=== PATIENT | female | born 1960 | race Caucasian/White ===

== ENCOUNTER 2017-08-20 21:07 | Inpatient (IN) | payer MEDICARE, OTHER ==
[~2017-08-20] VITALS: Ht 157.5 cm; Wt 72.6 kg
[~2017-08-20 21:07] MED LIST: ADULT LOW DOSE81 MG PO; ALBUTEROL INH; ANTIVERT25 MG PO; ASPIRIN EC81 M1 PO; B-COMPLEX-VITA1 EACH; BENTYL 20 MG TA20 M1 PO; BIOTIN1 MG PO; CELEXA10 MG PO; CELEXA20 MG; CIPROFLOXACIN500 M3 PO; CRESTOR20 MG PO; CRESTOR40 MG PO; CYMBALTA60 MG PO; DIABETA 2.5MG2.5 MG PO; DIABETA 5MG TABL5 MG PO; DOXEPIN 10 MG C10 M1 PO; ESTRADERM1 EACH; FLAGYL500 MG; GABAPENTIN100 MG PO; HUMALOG MI100 UNIT/2 SQ; HYDROCODONE-AP1 EAC6 PO; HYDROCODONE-APA1 TA1 PO; INVOKANA100 MG PO; KLONOPIN1 MG PO; LEVEMIR SUBQ; LEXAPRO 10 MG T10 MG; LISINOPRIL10 MG PO; LOSARTAN POTASS25 MG PO; METFORMIN HCL500 M2 PO; MIRALAX255 GM; MULTIVITAMINS PO; NEURONTIN 300300 M1 PO; NEXIUM 40 MG CA40 M1 PO; NEXIUM40 MG PO; NITROQUICK0.4 MG; NORCO 10-325 T1 EACH PO; NORCO 5-325 TA1 EACH PO; NORFLEX100 MG PO; NOVOLOG FL100 UNIT/M; PLAVIX 75 MG TA75 MG PO; PREMARIN1.25 MG PO; PROAIR HFA8.5 GM INH; RANEXA500 MG PO; RENEXA PO; TOPAMAX50 MG PO; TOPROL XL25 MG PO; VALTREX 500 MG500 MG PO; VENLAFAXIN37.5 MG/1 PO; XANAX 0.25 MG0.25 MG PO; ZANTAC300 MG PO; ZOFRAN ODT4 MG PO
[2017-08-20 21:13] VITALS: BP 146/94
[2017-08-20 21:47] LABS: HEMATOCRIT 43.6 % (37.0-47.0); HEMOGLOBIN 14.9 gm/dL (12.0-15.0); MCHC 34.1 g/dL (28.0-37.0); MPV 9.2 fl. (7.2-11.1); NUCLEATED RBCS 0 /100WBC; PLATELET COUNT* 339 thou/uL (150-400); RBC 4.79 mil/uL (4.20-5.00); RDW-CV 13.6 % (10.5-14.5); WBC 14.3 thou/uL (4.0-11.0)
[2017-08-20 21:57] LABS: URINE BILIRUBIN NEGATIVE (Negative); URINE BLOOD NEGATIVE (Negative); URINE CLARITY CLEAR; URINE COLOR YELLOW; URINE GLUCOSE-RANDOM 3+ (Negative); URINE KETONES 1+ (Negative); URINE LEUKOCYTES-REFLEX NEGATIVE (Negative); URINE NITRITE-REFLEX NEGATIVE (Negative); URINE PROTEIN NEGATIVE (Negative); URINE SPECIFIC GRAVITY <= 1.005 (1.005-1.030); URINE UROBILINOGEN 0.2 E.U./dl (0.2-1.0)
[2017-08-20 22:06] LABS: ABSOLUTE EOSINOPHILS 0.1 thou/uL (0.0-0.7); ABSOLUTE LYMPHOCYTES 0.7 thou/uL (0.8-5.3); ABSOLUTE MONOCYTES 0.4 thou/uL (0.0-1.2)
[2017-08-20 22:07] LABS: PLATELET ESTIMATE ADEQUATE
[2017-08-20 22:25] LABS: ANION GAP 11 mmol/L (7-16); BUN 10 mg/dL (7-18); CALCIUM 9.9 mg/dL (8.5-10.1); CHLORIDE 86 mmol/L (98-107); CO2 26 mmol/L (21-32); CREATININE 1.1 mg/dL (0.6-1.3); POTASSIUM 3.3 mmol/L (3.5-5.1); SODIUM 123 mmol/L (136-145)
[2017-08-20 22:29] LABS: ALBUMIN 3.3 g/dL (3.4-5.0); ALKALINE PHOSPHATASE 179 U/L (46-116); SGOT 12 U/L (15-37); SGPT 20 U/L (30-65); TOTAL BILIRUBIN 0.7 mg/dL (<0.1-1.0); TOTAL PROTEIN 7.8 g/dL (6.4-8.2); TROPONIN-I LEVEL <0.06 ng/mL (<0.06)
[2017-08-20 22:39] LABS: LIPASE 3051 U/L (73-393)
[2017-08-20 22:43] LABS: GLUCOSE 830 mg/dL (70-99)
[2017-08-20 23:10] LABS: BE -4.1 mmol/L (-2 to +3); HCO3 20.2 mmol/L (22.0-26.0); PCO2 34.8 mmHg (35.0-45.0); PO2 80.5 mmHg (75.0-100.0); pH 7.382 (7.340-7.450)
[2017-08-21] VITALS (10 sets, daily range): BP systolic 99–153; BP diastolic 43–77
[2017-08-21 04:48] LABS: HEMATOCRIT 37.1 % (37.0-47.0); MCH 30.7 pg (26.0-34.0); MCHC 34.5 g/dL (28.0-37.0); MCV 89.2 fL (80.0-100.0); MPV 8.7 fl. (7.2-11.1); RBC 4.16 mil/uL (4.20-5.00); RDW-CV 13.4 % (10.5-14.5); WBC 12.5 thou/uL (4.0-11.0)
[2017-08-21 05:10] LABS: ALBUMIN 2.8 g/dL (3.4-5.0); CALCIUM 8.7 mg/dL (8.5-10.1); CREATININE 0.7 mg/dL (0.6-1.3); POTASSIUM 3.3 mmol/L (3.5-5.1); TOTAL BILIRUBIN 0.4 mg/dL (<0.1-1.0); TOTAL PROTEIN 6.9 g/dL (6.4-8.2)
[2017-08-21 05:51] LABS: HEMOGLOBIN 12.8 gm/dL (12.0-15.0)
[2017-08-22 04:29] LABS: HEMATOCRIT 34.2 % (37.0-47.0); HEMOGLOBIN 11.8 gm/dL (12.0-15.0); MCH 30.9 pg (26.0-34.0); MCHC 34.4 g/dL (28.0-37.0); MCV 89.7 fL (80.0-100.0); MPV 8.4 fl. (7.2-11.1); RBC 3.82 mil/uL (4.20-5.00); RDW-CV 13.6 % (10.5-14.5); WBC 9.2 thou/uL (4.0-11.0)
[2017-08-22 04:43] LABS: ALBUMIN 2.3 g/dL (3.4-5.0); CALCIUM 7.9 mg/dL (8.5-10.1); CREATININE 0.5 mg/dL (0.6-1.3); POTASSIUM 3.6 mmol/L (3.5-5.1); TOTAL BILIRUBIN 0.2 mg/dL (<0.1-1.0); TOTAL PROTEIN 5.8 g/dL (6.4-8.2)
[2017-08-22 08:30] VITALS: BP 119/51
[2017-08-22] MEDS ORDERED: HYDROCODONE-AP1 EAC6 PO (12:55)
[2017-08-22 12:57] VITALS: BP 119/51
--- NOTE | 2017-08-26 16:13 | CON ---
[address] [address] CONSULTATION Name: ANATOLIY MARTINS Room: [address] IN .R.#: [id number] Admission: 08/20/17 Attend Phys: Alistair Norris MD Discharge: 08/22/17 Date of : 60 Report #: [id number] THIS REPORT FOR: //name// CC: Alistair Marmolejo DO DICTATED BY: Nadine Grissom [facility] DATE OF SERVICE: 08/21/2017 Please note at the time of this dictation, the patient was seen and physically examined by myself. REASON FOR CONSULTATION: Abdominal pain, pancreatitis. HISTORY OF PRESENT ILLNESS: This is a pleasant 57-year-old female who states that a couple of days ago, she started having some diffuse abdominal pain, body aches, radiating into her back. She had some nausea and vomiting and diarrhea, which she normally has issues with constipation. She denies any bright red blood or any melena from this. She states when she does get constipated and has not gone for a couple of days, she states she will take some MiraLax, which helps with her bowels. She has no history of pancreatitis or diverticulitis noted in the past. Prior to all of this, the patient did have URI symptoms about a month prior to all of this. She went to urgent care and received an antibiotic, did not improve and then went to her primary care later and received another antibiotic. She does not recall the names of those antibiotics at the present time, but we will talk to her to find out from her pharmacy what they were. The patient was last seen by us in 2012, she had grade A esophagitis with a hiatal hernia. Colonoscopy showed colitis extending from the descending to the sigmoid colon with some internal hemorrhoids and biopsies were confirmed with colonic ischemia. ALLERGIES: No known drug allergies. MEDICATIONS: From home include Plavix, aspirin, multivitamin, Crestor, Zantac, Levemir, Humalog, Biotene, ProAir, Nexium, losartan, Klonopin, Toprol and Cymbalta. PAST MEDICAL HISTORY: Stent placement, coronary artery disease, hyperlipidemia, hypertension, diabetes, GERD, history of lung cancer in 2016 followed with radiation. PAST SURGICAL HISTORY: She had a right upper lobe lobectomy, cataract surgery, carpal tunnel, appendectomy, hysterectomy and quadruple [place] [address] CONSULTATION Name: ANATOLIY MARTINS Sasha Room: [address]#: [id number] Admission: 08/20/17 Attend Phys: Alistair Norris MD Discharge: 08/22/17 Date of : 60 Report #: [id number] FAMILY HISTORY: Noncontributory. SOCIAL HISTORY: She denies any tobacco use, illegal drug use, alcohol rarely. REVIEW OF SYSTEMS: Twelve-point review of systems is essentially negative except what is mentioned in the HPI. PHYSICAL EXAMINATION: VITAL SIGNS: Temperature 36.8, pulse 107, respirations are 12, blood pressure 142/62. HEART: Regular rate and rhythm. LUNGS: Decreased, absent in the right upper with some wheezing noted, clear on the left. ABDOMEN: Soft, positive bowel sounds in all 4 quadrants with diffuse tenderness noted, especially in the upper areas of the abdomen and no bowel movement. LABORATORY DATA: Hemoglobin is 12.8, hematocrit 37.1, white count on admission was 14.3, down to 12.5, platelets is 273 and hematocrit is 37.1. Sodium 134, potassium 3.3, chloride 98, CO2 22, BUN is 7, creatinine 0.7, GFR is 86, glucose is 351, total bilirubin 0.4, alkaline phosphatase 145, ALT is 17, AST is 15. Lipase was 3051. CT of the abdomen and pelvis showed fatty liver. Gallbladder was normal with no stones noted. Pancreas showed minimal stranding at the tail of the pancreas. No focal masses noted and no bile duct dilatation noted. Colon, small amount of gas and stool noted, occasional diverticula in the sigmoid and descending colon. IMPRESSION: 1. Abdominal pain, recent antibiotic use, 2 different ones in the last month. 2. Pancreatitis. 3. Nausea and vomiting is improved. 4. Constipation. 5. Fatty liver. 6. Anticoagulant therapy, Plavix secondary to stent placement. 5. History of lung cancer, recent right upper lobe lobectomy followed up with radiation. PLAN: 1. IV fluids 150, normal saline at 150 an hour. 2. Clear liquids. 3. The patient is going to have her find out what 2 antibiotics she was recently taking. 4. May require an outpatient EUS for further evaluation. [address] [address] CONSULTATION Name: ANATOLIY MARTINS Room: [address] IN M.R.#: [id number] Admission: 08/20/17 Attend Phys: Alistair Norris MD Discharge: 08/22/17 Date of : 60 Report #: [id number] Thank you for allowing us to participate in this patient's care. Please do not hesitate to call with any questions in regard to this consult. <ELECTRONICALLY SIGNED> By: Anjali Avilez MD 08/26/17 1613 0852 [id number] Avilez MD /nt
--- NOTE | 2017-08-26 16:13 | CON ---
[address] [address] CONSULTATION Name: ANATOLIY MARTINS Room: [address] IN .R.#: [id number] Admission: 08/20/17 Attend Phys: Alistair Norris MD Discharge: 08/22/17 Date of : 60 Report #: [id number] THIS REPORT FOR: //name// CC: Alistair Norris Renee Marmolejo DATE OF SERVICE: 08/21/2017 ADDENDUM This is a 57-year-old female with history of upper and lower endoscopy by myself back in 2012. The patient at that time had colonic ischemia. She presents with 1 day of diarrhea, abdominal pain and nausea and vomiting. Upon admission, she was found to have evidence of stranding in the tail of the pancreas suggestive of pancreatitis with elevation of lipase in 3500 range. She also had fatty liver, which was unchanged from previous studies. She is currently on anticoagulation therapy and has had history of lung CA with right upper lobe lobectomy. We do not see any evidence of gallstone pancreatitis and the patient denies drinking any alcohol. She has used antibiotics in June and also takes antilipid agents. We will increase the fluids to 150 mL an hour. Continue monitoring her labs and keep her on clear liquids today. If her lipase improves tomorrow, we will advance her diet to low fat. <ELECTRONICALLY SIGNED> By: Anjali Avilez MD 08/26/17 1613 1126 [id number] Avilez MD /malou
== END 2017-08-22 19:34 | disposition home or self-care (01) | DRG 438 ==
LOC: M.ERS 21:07 → M.ORTHSURG 23:24 → M.ICU 23:24 → M.TBA-ER 23:24 → M.ICU 08-21 01:05 → M.ORTHSURG 08-21 08:12
PROVIDERS: Emergency Medicine; Internal Medicine; ADMIT Internal Medicine
DX: K85.90 Acute pancreatitis without necrosis or infection, unspecified (principal); E11.10 Type 2 diabetes mellitus with ketoacidosis without coma; R65.10 Systemic inflammatory response syndrome (SIRS) of non-infectious origin without acute organ dysfunction; E87.1 Hypo-osmolality and hyponatremia; N18.2 Chronic kidney disease, stage 2 (mild); I25.10 Atherosclerotic heart disease of native coronary artery without angina pectoris; E87.6 Hypokalemia; K75.81 Nonalcoholic steatohepatitis (NASH); E11.22 Type 2 diabetes mellitus with diabetic chronic kidney disease; E78.5 Hyperlipidemia, unspecified; K21.9 Gastro-esophageal reflux disease without esophagitis; E86.0 Dehydration; I12.9 Hypertensive chronic kidney disease with stage 1 through stage 4 chronic kidney disease, or unspecified chronic kidney disease; K59.00 Constipation, unspecified; F32.9 Major depressive disorder, single episode, unspecified; Z79.01 Long term (current) use of anticoagulants; Z85.118 Personal history of other malignant neoplasm of bronchus and lung; Z98.49 Cataract extraction status, unspecified eye; Z95.1 Presence of aortocoronary bypass graft; Z95.5 Presence of coronary angioplasty implant and graft; Z90.710 Acquired absence of both cervix and uterus; Z90.49 Acquired absence of other specified parts of digestive tract; Z87.891 Personal history of nicotine dependence; Z79.4 Long term (current) use of insulin

== ENCOUNTER → 2018-12-07 | Outpatient (CLI) | payer MEDICARE, OTHER ==
[~2018-12-07] MED LIST changes: +AMBIEN 5 MG TABL5 M1 PO; +BENTYL 10 MG CA10 M1 PO; +IMDUR 30 MG TAB30 M1 PO; +KLOR-CON 1010 MEQ PO; +MAGOX 400400 MG PO; +VITAMIN D2000 UNIT PO
== END ==
LOC: M.WC 08:59
DX: E11.621 Type 2 diabetes mellitus with foot ulcer (principal); L97.521 Non-pressure chronic ulcer of other part of left foot limited to breakdown of skin; L97.511 Non-pressure chronic ulcer of other part of right foot limited to breakdown of skin; L84 Corns and callosities; M27.2 Inflammatory conditions of jaws; E78.5 Hyperlipidemia, unspecified; K21.9 Gastro-esophageal reflux disease without esophagitis; I10 Essential (primary) hypertension; I25.10 Atherosclerotic heart disease of native coronary artery without angina pectoris; F41.9 Anxiety disorder, unspecified; Z85.118 Personal history of other malignant neoplasm of bronchus and lung; Z79.4 Long term (current) use of insulin; Z87.891 Personal history of nicotine dependence; Z95.1 Presence of aortocoronary bypass graft; Z95.5 Presence of coronary angioplasty implant and graft; Z90.710 Acquired absence of both cervix and uterus; Z98.41 Cataract extraction status, right eye; Z98.42 Cataract extraction status, left eye; Y63.2 Overdose of radiation given during therapy; Y78.1 Therapeutic (nonsurgical) and rehabilitative radiological devices associated with adverse incidents

== ENCOUNTER → 2018-12-14 | Outpatient (CLI) | payer MEDICARE, OTHER | LOC: M.WC 01:50 | DX: E11.621 Type 2 diabetes mellitus with foot ulcer (principal); L97.521 Non-pressure chronic ulcer of other part of left foot limited to breakdown of skin; L97.511 Non-pressure chronic ulcer of other part of right foot limited to breakdown of skin; M27.2 Inflammatory conditions of jaws; L84 Corns and callosities; I10 Essential (primary) hypertension; E78.5 Hyperlipidemia, unspecified; I25.10 Atherosclerotic heart disease of native coronary artery without angina pectoris; K21.9 Gastro-esophageal reflux disease without esophagitis; F41.9 Anxiety disorder, unspecified; Z87.891 Personal history of nicotine dependence; Z85.118 Personal history of other malignant neoplasm of bronchus and lung; Z90.710 Acquired absence of both cervix and uterus ==

== ENCOUNTER 2018-12-19 11:39 | Emergency (ER) | payer MEDICARE, OTHER ==
[~2018-12-19] VITALS: Ht 152.4 cm; Wt 74.8 kg
[2018-12-19] MEDS ORDERED: NORCO 5-325 TA1 EACH PO (13:40)
[2018-12-19 14:00] VITALS: BP 138/59
== END 2018-12-19 14:00 | disposition home or self-care (01) ==
LOC: M.ERS 11:39
DX: S70.01XA Contusion of right hip, initial encounter (principal); M54.31 Sciatica, right side; E11.9 Type 2 diabetes mellitus without complications; I10 Essential (primary) hypertension; E78.00 Pure hypercholesterolemia, unspecified; F32.9 Major depressive disorder, single episode, unspecified; Z90.49 Acquired absence of other specified parts of digestive tract; Z90.710 Acquired absence of both cervix and uterus; Z95.5 Presence of coronary angioplasty implant and graft; W18.39XA Other fall on same level, initial encounter; Y93.89 Activity, other specified; Y92.89 Other specified places as the place of occurrence of the external cause; Y99.8 Other external cause status

== ENCOUNTER → 2018-12-28 | Outpatient (CLI) | payer MEDICARE, OTHER | LOC: M.WC 05:02 | DX: E11.621 Type 2 diabetes mellitus with foot ulcer (principal); L97.511 Non-pressure chronic ulcer of other part of right foot limited to breakdown of skin; L84 Corns and callosities; M27.2 Inflammatory conditions of jaws; E78.5 Hyperlipidemia, unspecified; K21.9 Gastro-esophageal reflux disease without esophagitis; I10 Essential (primary) hypertension; I25.10 Atherosclerotic heart disease of native coronary artery without angina pectoris; F41.9 Anxiety disorder, unspecified; F32.9 Major depressive disorder, single episode, unspecified; Z85.118 Personal history of other malignant neoplasm of bronchus and lung; Z95.1 Presence of aortocoronary bypass graft; Z95.5 Presence of coronary angioplasty implant and graft; Z90.710 Acquired absence of both cervix and uterus; Z98.41 Cataract extraction status, right eye; Z98.42 Cataract extraction status, left eye; Z87.891 Personal history of nicotine dependence; Y63.2 Overdose of radiation given during therapy; Y78.1 Therapeutic (nonsurgical) and rehabilitative radiological devices associated with adverse incidents ==

== ENCOUNTER 2019-04-09 00:22 | Emergency (ER) | payer MEDICARE, OTHER ==
[~2019-04-09] VITALS: Ht 152.4 cm; Wt 73.9 kg
[~2019-04-09 00:22] MED LIST changes: +CYCLOBENZAPRINE5 MG PO; +ONDANSETRON HCL4 M2 PO; +ONE-A-DAY WOMENS PO; +VITAMIN B-12500 MCG PO
[2019-04-09 01:59] VITALS: BP 110/50
== END 2019-04-09 01:45 | disposition home or self-care (01) ==
LOC: M.ERS 00:22
DX: S93.491A Sprain of other ligament of right ankle, initial encounter (principal); S40.012A Contusion of left shoulder, initial encounter; S40.011A Contusion of right shoulder, initial encounter; E11.9 Type 2 diabetes mellitus without complications; I10 Essential (primary) hypertension; E78.00 Pure hypercholesterolemia, unspecified; F32.9 Major depressive disorder, single episode, unspecified; Y08.89XA Assault by other specified means, initial encounter; Y93.89 Activity, other specified; Y92.89 Other specified places as the place of occurrence of the external cause; Y99.8 Other external cause status

== ENCOUNTER 2019-06-27 10:31 | Inpatient (IN) | payer MEDICARE, OTHER ==
[~2019-06-27] VITALS: Ht 152.4 cm; Wt 70.8 kg
[2019-06-27 10:40] VITALS: BP 122/71
[2019-06-27 11:12] LABS: HEMATOCRIT 33.4 % (37.0-47.0); HEMOGLOBIN 11.2 gm/dL (12.0-15.0); MCH 28.8 pg (26.0-34.0); MCHC 33.5 g/dL (28.0-37.0); MCV 85.8 fL (80.0-100.0); MPV 8.5 fl. (7.2-11.1); NUCLEATED RBCS 0 /100WBC; PLATELET COUNT* 284 thou/uL (150-400); RBC 3.89 mil/uL (4.20-5.00); RDW-CV 15.9 % (10.5-14.5); WBC 21.2 thou/uL (4.0-11.0)
[2019-06-27 11:18] LABS: CALCIUM 9.5 mg/dL (8.5-10.1); CREATININE 1.1 mg/dL (0.6-1.3); POTASSIUM 3.3 mmol/L (3.5-5.1)
[2019-06-27 11:22] LABS: APTT 36.4 Seconds (25.0-31.3); INR 1.1; PROTIME 11.4 Seconds (9.20-11.50)
[2019-06-27 11:23] LABS: ALBUMIN 2.5 g/dL (3.4-5.0); TOTAL BILIRUBIN 0.6 mg/dL (<0.1-1.0); TOTAL PROTEIN 8.2 g/dL (6.4-8.2)
[2019-06-27 11:49] LABS: URINE BILIRUBIN NEGATIVE (Negative); URINE BLOOD TRACE (Negative); URINE CLARITY CLEAR; URINE COLOR YELLOW; URINE GLUCOSE-RANDOM 3+ (Negative); URINE KETONES NEGATIVE (Negative); URINE LEUKOCYTES-REFLEX 1+ (Negative); URINE NITRITE-REFLEX POSITIVE (Negative); URINE PROTEIN NEGATIVE (Negative); URINE UROBILINOGEN 0.2 E.U./dl (0.2-1.0)
[2019-06-27 11:54] LABS: ABSOLUTE LYMPHOCYTES 2.1 thou/uL (0.8-5.3); ABSOLUTE MONOCYTES 0.8 thou/uL (0.0-1.2); ABSOLUTE NEUTROPHILS 18.2 thou/uL (1.6-8.1); PLATELET ESTIMATE ADEQUATE
[2019-06-27 11:56] LABS: SQUAMOUS 0-3 Few /LPF (0-3)
[2019-06-27 11:57] LABS: URINE RBC 3-10 Few /HPF (0-2); URINE WBC-REFLEX 0-5 Rare /HPF (0-5)
[2019-06-27 11:58] LABS: BACTERIA-REFLEX >30 Many /HPF (None Seen); CASTS None Seen /LPF (None Seen); CRYSTALS None Seen /LPF (None Seen); MUCUS 0-3 Light strn/LPF (None Seen)
[2019-06-27 12:06] LABS: AMP/METHAMP POSITIVE (Negative); BARBITURATES Negative (Negative); BENZODIAZEPINES Negative (Negative); COCAINE Negative (Negative); METHADONE Negative (Negative); OPIATES POSITIVE (Negative); PCP Negative (Negative); THC Negative (Negative)
[2019-06-27 16:20] VITALS: BP 124/66
[2019-06-27 20:15] VITALS: BP 135/72
[2019-06-27 20:30] VITALS: BP 152/62
[2019-06-27 23:40] VITALS: BP 157/67
[2019-06-28 02:06] LABS: GLYCOHEMOGLOBIN (HGB A1C) 10.4 % (4.8-5.6)
[2019-06-28 03:40] VITALS: BP 117/52
[2019-06-28 05:30] LABS: ABSOLUTE EOSINOPHILS 0.1 thou/uL (0.0-0.7); ABSOLUTE LYMPHOCYTES 1.2 thou/uL (0.8-5.3); ABSOLUTE MONOCYTES 0.9 thou/uL (0.0-1.2); ABSOLUTE NEUTROPHILS 11.3 thou/uL (1.6-8.1); BASOPHILS 0.3 %; EOSINOPHILS 0.5 %; HEMOGLOBIN 9.9 gm/dL (12.0-15.0); LYMPHOCYTES 8.6 %; MCH 29.1 pg (26.0-34.0); MCHC 34.1 g/dL (28.0-37.0); MCV 85.4 fL (80.0-100.0); MONOCYTES 6.8 %; MPV 7.9 fl. (7.2-11.1); NUCLEATED RBCS 0 /100WBC; PLATELET COUNT* 274 thou/uL (150-400); POLYS 83.8 %; RDW-CV 16.1 % (10.5-14.5); WBC 13.5 thou/uL (4.0-11.0)
[2019-06-28 05:38] LABS: CALCIUM 8.9 mg/dL (8.5-10.1); CREATININE 0.8 mg/dL (0.6-1.3)
[2019-06-28 08:29] VITALS: BP 114/45
--- NOTE | 2019-06-28 10:55 | EKG ---
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 : 1960 Requested By: Esdras Jo Order Number: [id number] MD: Sj Pires Measurements Intervals Rillito Rate: 115 P: 33 DC: 131 QRS: 3 QRSD: 94 T: 161 QT: 307 QTc: 425 Interpretive Statements Sinus tachycardia Left atrial enlargement Nonspecific repol abnormality, diffuse leads Compared to ECG 02/17/2019 07:59:17 Atrial abnormality now present Early repolarization now present Electronically Signed On 06-28-2019 10:55:22 MOTOR SCOOTER MECHANIC by Sj Pires [email or web address] <ELECTRONICALLY SIGNED> By: Sj Pires MD, FACC 06/28/19 1055 1107 [id number] Sj Pires MD, FAC /EPI
[2019-06-28 12:52] VITALS: BP 107/39
[2019-06-28 16:18] VITALS: BP 121/50
[2019-06-28 19:50] LABS: CALCIUM 8.9 mg/dL (8.5-10.1); CREATININE 0.9 mg/dL (0.6-1.3); MAGNESIUM 1.6 mg/dL (1.8-2.4); POTASSIUM 3.9 mmol/L (3.5-5.1)
[2019-06-28 20:00] VITALS: BP 132/63
[2019-06-29] VITALS: BP 121/50
[2019-06-29 04:00] VITALS: BP 118/51
[2019-06-29 05:47] LABS: ABSOLUTE BASOPHILS 0.1 thou/uL (0.0-0.2); ABSOLUTE EOSINOPHILS 0.3 thou/uL (0.0-0.7); ABSOLUTE LYMPHOCYTES 1.6 thou/uL (0.8-5.3); ABSOLUTE MONOCYTES 0.7 thou/uL (0.0-1.2); ABSOLUTE NEUTROPHILS 7.8 thou/uL (1.6-8.1); BASOPHILS 0.6 %; HEMATOCRIT 28.4 % (37.0-47.0); HEMOGLOBIN 9.6 gm/dL (12.0-15.0); LYMPHOCYTES 15.1 %; MCH 29.2 pg (26.0-34.0); MCHC 33.8 g/dL (28.0-37.0); MCV 86.2 fL (80.0-100.0); MONOCYTES 6.4 %; MPV 7.5 fl. (7.2-11.1); NUCLEATED RBCS 0 /100WBC; PLATELET COUNT* 312 thou/uL (150-400); POLYS 74.9 %; WBC 10.3 thou/uL (4.0-11.0)
[2019-06-29 06:01] LABS: ALBUMIN 1.6 g/dL (3.4-5.0); CALCIUM 8.8 mg/dL (8.5-10.1); CREATININE 0.8 mg/dL (0.6-1.3); POTASSIUM 3.6 mmol/L (3.5-5.1); TOTAL BILIRUBIN 0.1 mg/dL (<0.1-1.0); TOTAL PROTEIN 6.1 g/dL (6.4-8.2)
[2019-06-29 09:09] VITALS: BP 103/32
[2019-06-29 17:23] VITALS: BP 118/51
[2019-06-29 20:00] VITALS: BP 134/59
[2019-06-30] VITALS: BP 120/51
[2019-06-30 04:00] VITALS: BP 136/54
[2019-06-30 08:00] VITALS: BP 134/64
[2019-06-30 11:07] LABS: MAGNESIUM 1.4 mg/dL (1.8-2.4); PHOSPHORUS* 3.8 mg/dL (2.5-4.9)
[2019-06-30 12:09] VITALS: BP 130/49
[2019-06-30 15:55] VITALS: BP 129/42
[2019-06-30 20:00] VITALS: BP 158/74
[2019-07-01] VITALS: BP 127/48
[2019-07-01 04:00] VITALS: BP 149/62
[2019-07-01 05:26] LABS: HEMATOCRIT 30.8 % (37.0-47.0); HEMOGLOBIN 10.2 gm/dL (12.0-15.0); MCH 28.7 pg (26.0-34.0); MCHC 33.1 g/dL (28.0-37.0); MCV 86.5 fL (80.0-100.0); MPV 7.4 fl. (7.2-11.1); RBC 3.56 mil/uL (4.20-5.00); WBC 8.9 thou/uL (4.0-11.0)
[2019-07-01 05:45] LABS: CALCIUM 8.5 mg/dL (8.5-10.1); CREATININE 0.7 mg/dL (0.6-1.3)
[2019-07-01 08:00] VITALS: BP 132/58
[2019-07-01] MEDS ORDERED: LEVAQUIN 750 M750 MG PO (10:09)
[2019-07-01 11:09] VITALS: BP 132/58
== END 2019-07-01 11:52 | disposition home or self-care (01) | DRG 871 ==
LOC: M.ERS 10:31 → M.TBA-ER 12:24 → M.2W 12:24
PROVIDERS: Family Medicine; Physician Assistant; ADMIT Internal Medicine
DX: A41.9 Sepsis, unspecified organism (principal); E11.00 Type 2 diabetes mellitus with hyperosmolarity without nonketotic hyperglycemic-hyperosmolar coma (NKHHC); N39.0 Urinary tract infection, site not specified; E87.1 Hypo-osmolality and hyponatremia; G93.40 Encephalopathy, unspecified; I25.10 Atherosclerotic heart disease of native coronary artery without angina pectoris; I10 Essential (primary) hypertension; E78.00 Pure hypercholesterolemia, unspecified; F32.9 Major depressive disorder, single episode, unspecified; E11.65 Type 2 diabetes mellitus with hyperglycemia; S00.83XA Contusion of other part of head, initial encounter; W18.39XA Other fall on same level, initial encounter; F41.9 Anxiety disorder, unspecified; B96.89 Other specified bacterial agents as the cause of diseases classified elsewhere; Z85.118 Personal history of other malignant neoplasm of bronchus and lung; Z79.899 Other long term (current) drug therapy; Z79.4 Long term (current) use of insulin; Z79.82 Long term (current) use of aspirin; Z95.1 Presence of aortocoronary bypass graft; Z95.5 Presence of coronary angioplasty implant and graft; Z90.710 Acquired absence of both cervix and uterus; Z90.89 Acquired absence of other organs; Z98.42 Cataract extraction status, left eye; Z98.41 Cataract extraction status, right eye; Z90.49 Acquired absence of other specified parts of digestive tract; Z87.891 Personal history of nicotine dependence; Y93.89 Activity, other specified; Y92.89 Other specified places as the place of occurrence of the external cause; Y99.8 Other external cause status

== ENCOUNTER 2019-07-29 11:00 | Inpatient (IN) | payer MEDICARE, OTHER ==
[~2019-07-29] VITALS: Ht 152.4 cm; Wt 64.9 kg
[~2019-07-29 11:00] MED LIST changes: +LEVAQUIN 750 M750 MG PO; +NITROGLYCERIN0.3 M1 SUBLING; -NITROQUICK0.4 MG; +ZANTAC 150MG T150 M1 PO; -ZANTAC300 MG PO
[2019-07-29 11:12] VITALS: BP 125/74
[2019-07-29 11:39] LABS: URINE BILIRUBIN NEGATIVE (Negative); URINE BLOOD TRACE (Negative); URINE CLARITY CLEAR; URINE COLOR YELLOW; URINE GLUCOSE-RANDOM 3+ (Negative); URINE KETONES NEGATIVE (Negative); URINE LEUKOCYTES-REFLEX 1+ (Negative); URINE PROTEIN TRACE (Negative); URINE SPECIFIC GRAVITY <= 1.005 (1.005-1.030); URINE UROBILINOGEN 0.2 E.U./dl (0.2-1.0)
[2019-07-29 11:41] LABS: URINE NITRITE-REFLEX POSITIVE (Negative)
[2019-07-29 11:52] LABS: BACTERIA-REFLEX >30 Many /HPF (None Seen); CASTS None Seen /LPF (None Seen); CRYSTALS None Seen /LPF (None Seen); SQUAMOUS 0-3 Few /LPF (0-3); URINE RBC 0-2 Rare /HPF (0-2); URINE WBC-REFLEX 6-15 Few /HPF (0-5)
[2019-07-29 12:04] LABS: HEMATOCRIT 37.7 % (37.0-47.0); HEMOGLOBIN 12.8 gm/dL (12.0-15.0); MCH 28.9 pg (26.0-34.0); MCHC 33.9 g/dL (28.0-37.0); MCV 85.3 fL (80.0-100.0); MPV 7.6 fl. (7.2-11.1); NUCLEATED RBCS 0 /100WBC; PLATELET COUNT* 300 thou/uL (150-400); RBC 4.41 mil/uL (4.20-5.00); RDW-CV 15.5 % (10.5-14.5); WBC 16.3 thou/uL (4.0-11.0)
[2019-07-29 12:05] LABS: PCO2 39.6 mmHg (35.0-45.0); PO2 67.7 mmHg (75.0-100.0); pH 7.466 (7.340-7.450)
--- NOTE | 2019-07-29 12:12 | NUR ---
MULTIPLE ATTEMPTS TO OBTAIN IV ACCESS UNSUCESSFUL. INFUSION NURSE PAGED FOR ASSIST
[2019-07-29 12:15] LABS: CALCIUM 9.5 mg/dL (8.5-10.1); CREATININE 1.1 mg/dL (0.6-1.3); POTASSIUM 3.6 mmol/L (3.5-5.1)
[2019-07-29 12:20] LABS: ALBUMIN 2.7 g/dL (3.4-5.0); MAGNESIUM 1.6 mg/dL (1.8-2.4); TOTAL BILIRUBIN 0.3 mg/dL (<0.1-1.0); TOTAL PROTEIN 8.6 g/dL (6.4-8.2)
[2019-07-29 12:57] LABS: ABSOLUTE LYMPHOCYTES 1.1 thou/uL (0.8-5.3); ABSOLUTE MONOCYTES 0.5 thou/uL (0.0-1.2); ABSOLUTE NEUTROPHILS 14.7 thou/uL (1.6-8.1); PLATELET ESTIMATE ADEQUATE
--- NOTE | 2019-07-29 18:15 | NUR ---
REPORT CALLED TO MORGAN ON . PT TAKEN TO ROOM VIA CART
[2019-07-29 18:25] VITALS: BP 114/74
[2019-07-29 18:44] VITALS: BP 100/58
--- NOTE | 2019-07-29 19:07 | NUR ---
PT ADMITTED TO ROOM 232 VIA CART FROM ED AT APPROXIMATELY 1815. REPORT RECEIVED FROM BYRON ORDOÑEZ. PT ORIENTED TO ROOM AND CALL LIGHT. AT BEDSIDE. PT A&0X4, SLOW TO RESPOND AT TIMES, PT TRACING ST ON THE PUMP AND BLOWER OPERATOR-RATE IN THE 110'S-120'S. ON RA SAT 92%. DENIES ANY SHORTNESS OF BREATH. IVF. ADMISSION ASSESSMENT AND HISTORY COMPLETED. REFER TO CHARTING. NEGATIVE FOR SESPSI. PT UP WITH 1 ASSIST-UNSTEADY AND WEAKNESS NOTED. UROLOGY CONSULT IN PLACE FOR UROSEPSIS. HOME MEDICATIONS RECONCILED. MEDICATIONS PER SEP. PT REPOSITIONS SELF. HOURLY ROUNDING OBSERVED. BED IN LOW POSITION. BED ALARM IN PLACE. FALL PRECAUTIONS IN PLACE. CALL LIGHT WITHIN REACH. WILL CONTINUE PLAN OF CARE.
[2019-07-29 20:10] VITALS: BP 108/61
[2019-07-30] VITALS: BP 120/49
[2019-07-30 04:00] VITALS: BP 92/47
--- NOTE | 2019-07-30 05:13 | NUR ---
ASSESSMENT COMPLETED CHARTED. VSS. SEE MAR. PROGRESSING TOWARDS GOALS. FALL PRECAUTIONS IN PLACE. HOURLY ROUNDING FOR SAFETY.
[2019-07-30 08:00] VITALS: BP 125/63
[2019-07-30 12:00] VITALS: BP 124/54
[2019-07-30 16:00] VITALS: BP 138/58
--- NOTE | 2019-07-30 16:09 | NUR ---
ASSUMED CARE OF PT AT 0730. PT RESTING IN BED WAITING FOR BREAKFAST. AND SISTER AT BEDSIDE. PT A&0X4, DENIES ANY PAIN OR SHORTNESS OF BREATH AT THIS TIME. PT GIVEN TYLENOL BY NOC SHIFT EARLY THIS AM FOR HEADACHE. TRACING SR/ST ON THE APPRENTICE PLANT ATTENDANT. ON RA SAT UPPER 90'S. PT UP WITH 1 ASSIST TO BATHROOM-UNSTEADY AT TIMES. FALL PRECAUTIONS ENFORCED TO PT. IVF. PT GOAL FOR TODAY IS PAIN MGMT, UROLOGY CONSULT IN PLACE AND INCREASE ACTIVITY. AM ASSESSMENT CHARTED. MEDICATIONS PER MAR. PT REPOSITIONS SELF. HOURLY ROUNDING OBSERVED. BED IN LOW POSITION. CALL LIGHT WITHIN REACH. WILL CONTINUE PLAN OF CARE.
[2019-07-30 20:14] VITALS: BP 138/59
[2019-07-30 21:06] LABS: COMPLEMENT-C4 41 mg/dL (14-44); IgA 337 mg/dL (87-352); IgG 1263 mg/dL (700-1600); IgM 76 mg/dL (26-217)
[2019-07-31 00:34] VITALS: BP 128/57
[2019-07-31 04:12] VITALS: BP 142/71
[2019-07-31 08:00] VITALS: BP 130/65
--- NOTE | 2019-07-31 08:24 | NUR ---
PT IS ABLE TO COMMUNICATE HER NEEDS TO STAFF EFFECTIVELY. CURRENT PAIN MEDICTION REGIMEN HAS BEEN ADEQUATE FOR CONTROLLING HER PAIN UP TO THIS TIME. BLOOD CULTURES REDRAWN THIS AM PER MD REQUEST. PT BLADDER SCANNED A COUPLE OF TIME FOR PVR DURING PUBLIC WORKS MANAGER, PER MD ORDER. PT'S BLOOD GLUCOSE LEVELS CAN RUN HIGH .
--- NOTE | 2019-07-31 09:00 | NUR ---
ASSUMED CARE OF PT AT 0730. PT RESTING IN BED WAITING FOR BREAKFAST. A&0X4, DENIES ANY PAIN OR SHORTNESS OF BREATH AT THIS TIME. PT STATES SHE SLEPT WELL LAST NIGHT. PT TRACING SR/ST ON THE CHECKROOM ATTENDANT. ON RA SAT UPPER 90'S. AT BEDSIDE. IVF. PT UP WITH 1 ASSIST STANDBY TO BATHROOM. UROLOGY CONSULT IN PLACE. PT GOAL FOR TODAY IS PAIN MGMT, UROLOGY CONSULT, MONITOR PVR AND IV ANTIOBIOTICS/IVF. AM ASSESSMENT CHARTED. MEDICATIONS PER MAR. PT REPOSITIONS SELF. HOURLY ROUNDING OBSERVED. BED IN LOW POSITION. CALL LIGHT WITHIN REACH. WILL CONTINUE PLAN OF CARE.
[2019-07-31 12:00] VITALS: BP 148/61
[2019-07-31 15:49] LABS: ABSOLUTE EOSINOPHILS 0.1 thou/uL (0.0-0.7); ABSOLUTE LYMPHOCYTES 0.8 thou/uL (0.8-5.3); ABSOLUTE MONOCYTES 0.4 thou/uL (0.0-1.2); ABSOLUTE NEUTROPHILS 3.6 thou/uL (1.6-8.1); ALBUMIN 1.8 g/dL (3.4-5.0); BASOPHILS 0.8 %; CALCIUM 7.9 mg/dL (8.5-10.1); CREATININE 0.9 mg/dL (0.6-1.3); EOSINOPHILS 2.9 %; HEMATOCRIT 28.5 % (37.0-47.0); LYMPHOCYTES 15.4 %; MCH 29.4 pg (26.0-34.0); MCHC 34.3 g/dL (28.0-37.0); MCV 85.7 fL (80.0-100.0); MPV 7.4 fl. (7.2-11.1); NUCLEATED RBCS 0 /100WBC; POLYS 72.9 %; RBC 3.32 mil/uL (4.20-5.00); RDW-CV 15.3 % (10.5-14.5); TOTAL BILIRUBIN 0.1 mg/dL (<0.1-1.0); TOTAL PROTEIN 5.7 g/dL (6.4-8.2); WBC 4.9 thou/uL (4.0-11.0)
[2019-07-31 15:50] LABS: HEMOGLOBIN 9.8 gm/dL (12.0-15.0); PLATELET COUNT* 209 thou/uL (150-400)
[2019-07-31 16:00] VITALS: BP 120/57
[2019-07-31 17:11] LABS: ESR (SEDRATE) 78 mm/hr (0-30)
--- NOTE | 2019-07-31 18:44 | NUR ---
NO ACUTE CHANGES THROUGHOUT SHIFT. REFER TO CHARTING. UROLOGY CONSULT IN PLACE. PT AT BEDSIDE THROUGHOUT SHIFT AND UPDATED ON CURRENT PLAN OF CARE. PVR CONTINUES TO BE BELOW 200. WILL CONTINUE TO MONITOR CLOSELY. MEDICATIONS PER MAR. PT REPOSITIONS SELF. HOURLY ROUNDING OBSERVED. BED IN LOW POSITION. CALL LIGHT WITHIN REACH. WILL CONTINUE PLAN OF CARE.
[2019-07-31 19:30] VITALS: BP 144/62
[2019-08-01] VITALS (7 sets, daily range): BP systolic 107–156; BP diastolic 45–74
--- NOTE | 2019-08-01 03:27 | NUR ---
ASSUMED CARE OF PT AT 1900. PT IS ALERRT AND ORIENTED. VSS. MAIN. PT IS UP WITH STAND BY ASSIST. PT IS IN SINUS RYTHM ON THE TELEMETRY. PT IS RESTING COMFORTABLY IN BED. RESPIRATIONS ARE EVEN AND NONLABORED. WILL CONTINUE TO MONITOR PT.
--- NOTE | 2019-08-01 12:58 | NUR ---
ASSUMED CARE OF PT AT 0730. PT RESTING IN BED, AT BEDSIDE. PT A&0X4, DENIES ANY PAIN OR SHORTNESS OF BREATH AT THIS TIME. PT TRACING SR/ST ON THE FOUNDER & CEO. ON RA SAT UPPER 90'S. IVF. PT UP WITH SBA TO BATHROOM. UROLOGY CONSULT IN PLACE. PT GOAL FOR TODAY IS PAIN MGMT, IVF, IV ANTIBIOTICS AND MAINTAIN PVR LESS THAN 200. AM ASSESSMENT CHARTED. MEDICATIONS PER MAR. PT REPOSITIONS SELF. HOURLY ROUNDING OBSERVED. BED IN LOW POSITION. CALL LIGHT WITHIN REACH. WILL CONTINUE PLAN OF CARE.
--- NOTE | 2019-08-01 13:36 | NUR ---
Nutrition: Consult [place] poor po intake and wt change. Pt stated she has lost some wt over time, but then did lose 11# from May through Jun d/t variable appetite. "When I'm hungry, I eat all day long. When I'm not, then I just don't eat much." She also stated she is a picky eater. She has a menu and is eating well here. She doesn't like Ensure shakes. Wt: 143#. Admitted with recurrent UTI. BG 207, alb 1.8, prealb 11.5. Severely depleted protein stores, elevated BG. GOALS: tight BG control, RD will add CHO count to diet, good protein intake at meals. Mild risk at this time.
[2019-08-01 14:50] LABS: ABSOLUTE EOSINOPHILS 0.1 thou/uL (0.0-0.7); ABSOLUTE LYMPHOCYTES 0.6 thou/uL (0.8-5.3); ABSOLUTE MONOCYTES 0.3 thou/uL (0.0-1.2); ABSOLUTE NEUTROPHILS 5.3 thou/uL (1.6-8.1); BASOPHILS 0.7 %; HEMATOCRIT 28.8 % (37.0-47.0); LYMPHOCYTES 10.1 %; MCH 29.7 pg (26.0-34.0); MCHC 34.6 g/dL (28.0-37.0); MCV 85.9 fL (80.0-100.0); MONOCYTES 4.9 %; MPV 7.2 fl. (7.2-11.1); NUCLEATED RBCS 0 /100WBC; PLATELET COUNT* 245 thou/uL (150-400); POLYS 82.3 %; RBC 3.36 mil/uL (4.20-5.00); RDW-CV 15.1 % (10.5-14.5); WBC 6.4 thou/uL (4.0-11.0)
[2019-08-01 15:26] LABS: ALBUMIN 2.1 g/dL (3.4-5.0); CALCIUM 8.4 mg/dL (8.5-10.1); CREATININE 0.7 mg/dL (0.6-1.3); POTASSIUM 3.7 mmol/L (3.5-5.1); TOTAL BILIRUBIN 0.1 mg/dL (<0.1-1.0)
[2019-08-01 15:48] LABS: ESR (SEDRATE) 100 mm/hr (0-30)
--- NOTE | 2019-08-01 15:53 | NUR ---
CM spoke with Pt's dtr via phone. Pt resides at home with , dtr and 2 grandkids. completes IADLS, Pt has been independent with ADLs. Dtr believes that Pt's depression is causing her lack of motivation. No DME. No hx of HH or SNF. Plan for dc to home with HH with a nurse and PT. Following.
--- NOTE | 2019-08-01 17:48 | NUR ---
NO ACUTE CHANGES THROUGHOUT SHIFT. REFER TO CHARTING. PT AT BEDSIDE THROUGHOUT SHIFT AND UPDATED ON CURRENT PLAN OF CARE. PT AMBULATED IN ROOM WITH NURSING STAFF SBA-TOLERATED WELL. ID CONSULT PLACED TODAY. UROLOGY CONSULT IN PLACE. LABS IN AM. PROGRESSING TOWARDS GOALS. MEDICATIONS PER MAR. PT REPOSITIONS SELF. HOURLY ROUNDING OBSERVED. BED IN LOW POSITION. CALL LIGHT WITHIN REACH. WILL CONTINUE PLAN OF CARE.
[2019-08-02] VITALS: BP 153/54
[2019-08-02 04:00] VITALS: BP 113/37
--- NOTE | 2019-08-02 04:08 | NUR ---
PT ALERT ORIENTED. AFTER 1999 PT HAD 10 BEAT VTACH FOLLOWED WITH BIGEMINAL PVCS. BP WNL. PT DENIED FEELING PALPATATIONS CP OR DIZZYNESS. DR WINTERS NOTIFIED. NO NEW ORDERS GIVEN. PT CONTINUES WITH SR PVCS AND BIGEMINAL PVCS. NPO AT [place] FOR EGD. CONSENT SIGNED AND ON CHART. LABS W H&P PRINTED AND PLACED IN THE FRONT OF CHART. UP TO BR WITH STD BY ASSIST.
[2019-08-02 07:30] VITALS: BP 145/52
[2019-08-02 11:30] VITALS: BP 161/56
[2019-08-02] MEDS ORDERED: INVANZ1 GM IV (11:32)
--- NOTE | 2019-08-02 12:13 | NUR ---
[place] FAXED ORDER AND FACESHEET TO OUTPATIENT SCHEDULING; [phone], PT WOULD LIKE TO COME TO [facility] TO COMPLETE IV INFUSION. [place] SPK W/ANN IN OUTPT SCHEDULING AND ANN WILL CONTACT PT TO SCHEDULE TIME. PT INFOMRMED OF THIS AND IN AGREEMENT. PT STATED SHE WOULD LIKE TO BEGIN TX ON 08/04/2019. ANN NOTIFIED BY [place].
[2019-08-02 12:32] VITALS: BP 145/52
--- NOTE | 2019-08-02 13:49 | NUR ---
RECEIVED DISCHARGE ORDERS PER DR ESPOSITO. INFECTIOUS DISEASE OK WITH DC TODAY. MIDLINE PLACED PER RUBBER MILL TENDER. CASE MANAGEMENT SETUP ANTIBIOTIC INFUSIONS POST DISCHARGE. EDUCATED THE PATIENT ON F/U APPOINTMENTS AND HOME MEDICATIONS TO CONTINUE. PERIPHERAL IVS DISCONTINUED. NETWORK OPERATIONS ANALYST REMOVED AND RETURNED TO NURSE'S DESK. BOTH PATIENT AND HER SPOUSE DENY ANY QUESTIONS/CONCERNS AT TIME OF DISCHARGE. SHE IS LEAVING VIA WHEELCHAIR ACCOMPANIED BY NURSING STAFF AND HER SPOUSE FOR TRANSPORT. ALL BELONGINGS PACKED AND SENT HOME WITH THE PATIENT.
[2019-08-03 07:13] LABS: HEPATITIS B SURFACE AG Negative (Negative)
--- NOTE | 2019-08-03 12:33 | CON ---
[address] [address] CONSULTATION Name: ANATOLIY MARTINS Room: [address] IN M.R.#: [id number] Admission: 07/29/19 Attend Phys: Delmy Goldberg Discharge: 08/02/19 Date of : 60 Report #: [id number] THIS REPORT FOR: //name// CC: Renee Pickard DATE OF SERVICE: 08/02/2019 INFECTIOUS DISEASE CONSULTATION ATTENDING PHYSICIAN: Dr. Pickard. REASON FOR EVALUATION: Complicated urinary tract infection, perhaps relapsing due to moderately resistant gram-negative. HISTORY OF PRESENT ILLNESS: Chart reviewed, patient examined. This is a 59-year-old woman with history of diabetes mellitus that has been complicated by vasculopathy, has known coronary artery disease with previous aortocoronary bypass grafting, hypertension, who was admitted now at least 3-4 times for similar type problems, diagnosed with infectious causes including repeated urinary tract infections with at least 2 cultures with Serratia marcescens. From here, she was hospitalized in 2 other facilities as well. She has had combination IV and oral antibiotics previously. She presented during this hospitalization with encephalopathy. She was slurring her words. She did report some intermittent fevers, certainly chills, generalized weakness. Denies significant amount of pain at present. Urinalysis did show moderate pyuria at this time. She was empirically started on meropenem. Clinically, she has improved. Denies any significant pulmonary or gastrointestinal related complaints. ALLERGIES: None known. MEDICATIONS: Include hydrocodone, insulin, cyanocobalamin, cholecalciferol, metoprolol, losartan, aspirin, zolpidem, duloxetine, meropenem, p.r.n. analgesics and antiemetics. PAST MEDICAL HISTORY: As described above, known diabetes mellitus, vasculopathy, coronary artery disease, hypertension, cataracts, high cholesterol, history of depression, post-cholecystectomy, carpal tunnel surgery bilaterally, hysterectomy, appendectomy. SOCIAL HISTORY: Former smoker. No ethanol. No illicit drug use. FAMILY HISTORY: Noncontributory. REVIEW OF SYSTEMS: Otherwise, unremarkable 10-[place] [id number] CONSULTATION Name: ANATOLIY MARTINS Room: [address]#: [id number] Admission: 07/29/19 Attend Phys: Delmy Goldberg Discharge: 08/02/19 Date of : 60 Report #: [id number] exception of the above. PHYSICAL EXAMINATION: GENERAL: She appears somewhat chronically ill, undernourished, is pleasant, cooperative, cwxn-yj-fwgmnhqw distress, somewhat anxious. VITAL SIGNS: Temperature 98, pulse 74, respirations 16, blood pressure 145/52. SKIN: Warm, dry, no rashes. HEENT: Otherwise unremarkable. Normocephalic. Extraocular muscles intact. NECK: Supple. LUNGS: Diminished breath sounds. HEART: Regular. I do not appreciate murmur. ABDOMEN: Soft, nontender, nondistended. There is no CVA tenderness, no spinal tenderness. GENITOURINARY AND RECTAL: Deferred. LABORATORY DATA: Blood cultures 1 out of 2 with gram-negative dustin, awaiting ID. Urine culture was Serratia marcescens, intermittently resistant, is susceptible to later-generation cephalosporins, quinolones, aminoglycosides, carbapenems, trimethoprim-sulfamethoxazole. Recent CBC: White count 6.4, H and H 10.0 and 28.8, platelets of 245. Sed rate 100. Electrolytes: Sodium 137, potassium 4.0, chloride 103, bicarbonate is 20, anion gap of 5, BUN and creatinine 5 and 0.9. AST is elevated at 216, ALT of 90, albumin 1.8. Total protein 6.4. ASSESSMENT AND PLAN: Gram-negative septicemia in the setting likely of complicated urinary tract infection with pyelonephritis. Apparently, this appears relapsing, we will continue parenteral therapy, go ahead and arrange a midline, place a plan for parenteral therapy with Invanz at least for additional 1-2 weeks. We will see how she does clinically. In review the other testing noted, she does have hepatitis for unclear reasons. May need additional evaluation, may well just do an ultrasound prior to her discharge to exclude hepatobiliary issue. <ELECTRONICALLY SIGNED> By: Uzair Garcia MD 08/03/19 1233 1039 [id number] Garcia MD /nt
[2019-08-03 14:09] LABS: GLOBULIN TOTAL 3.6 g/dL (2.2-3.9); M-SPIKE Not Observed g/dL (Not Observed)
== END 2019-08-02 13:54 | disposition home or self-care (01) | DRG 871 ==
LOC: M.ERS 11:00 → M.TBA-ER 14:03 → M.2W 14:03
PROVIDERS: Personal Emergency Response Attendant; Specialist; ADMIT Internal Medicine
PROC: 05HY33Z Insertion of Infusion Device into Upper Vein, Percutaneous Approach (ICD-10-PCS; principal; 2019-08-02)
DX: A41.9 Sepsis, unspecified organism (principal); E43 Unspecified severe protein-calorie malnutrition; N39.0 Urinary tract infection, site not specified; C34.90 Malignant neoplasm of unspecified part of unspecified bronchus or lung; R65.20 Severe sepsis without septic shock; R50.9 Fever, unspecified; M54.5 Low back pain; I25.10 Atherosclerotic heart disease of native coronary artery without angina pectoris; E11.9 Type 2 diabetes mellitus without complications; I10 Essential (primary) hypertension; H25.813 Combined forms of age-related cataract, bilateral; E78.00 Pure hypercholesterolemia, unspecified; F32.9 Major depressive disorder, single episode, unspecified; Z90.49 Acquired absence of other specified parts of digestive tract; Z95.1 Presence of aortocoronary bypass graft; Z95.5 Presence of coronary angioplasty implant and graft; Z90.710 Acquired absence of both cervix and uterus; Z90.89 Acquired absence of other organs; Z90.2 Acquired absence of lung [part of]; Z79.82 Long term (current) use of aspirin; Z79.4 Long term (current) use of insulin; Z79.899 Other long term (current) drug therapy; Z87.891 Personal history of nicotine dependence; Z68.27 Body mass index [BMI] 27.0-27.9, adult

== ENCOUNTER → 2019-08-03 | Outpatient (CLI) | payer MEDICARE, OTHER ==
[~2019-08-03] MED LIST changes: +INVANZ1 GM IV
== END ==
LOC: M.ULTRA 09:22
DX: K52.9 Noninfective gastroenteritis and colitis, unspecified (principal); N39.0 Urinary tract infection, site not specified; Z90.49 Acquired absence of other specified parts of digestive tract

== ENCOUNTER → 2019-08-05 | Outpatient (CLI) | payer MEDICARE, OTHER ==
[2019-08-05 08:11] VITALS: BP 156/68
--- NOTE | 2019-08-05 10:42 | NUR ---
MIDLINE INTACT AND PATENT WITH DRESSING CDI. DENIES ADVERSE REACTION TO PRIOR INFUSION OF SAME. INFUSION COMPLETED AND TOLERATED WELL. DENIES QUESTIONS OR NEEDS AT DISCHARGE.
== END ==
LOC: M.INFUS 07:52
DX: K52.9 Noninfective gastroenteritis and colitis, unspecified (principal)

== ENCOUNTER → 2019-08-06 | Outpatient (CLI) | payer MEDICARE, OTHER | LOC: M.INFUS 07:53 | DX: K52.9 Noninfective gastroenteritis and colitis, unspecified (principal); N39.0 Urinary tract infection, site not specified ==

== ENCOUNTER → 2019-08-08 | Outpatient (CLI) | payer MEDICARE, OTHER ==
[2019-08-08 08:20] VITALS: BP 145/89
--- NOTE | 2019-08-08 09:43 | NUR ---
arrived ambulatory. made self comfortable. deneis adverse reaction to prior infusion so f same. midline intact and patent. infusion completed and tolerated well. midline flushed and left in place. denies needs or questions at discharge.
== END ==
LOC: M.INFUS 01:23
DX: K52.9 Noninfective gastroenteritis and colitis, unspecified (principal); N39.0 Urinary tract infection, site not specified

== ENCOUNTER → 2019-08-09 | Outpatient (CLI) | payer MEDICARE, OTHER ==
[2019-08-09 08:15] VITALS: BP 132/72
[2019-08-09 09:12] LABS: HEMATOCRIT 33.9 % (37.0-47.0); HEMOGLOBIN 11.5 gm/dL (12.0-15.0); MCH 29.1 pg (26.0-34.0); MCHC 33.9 g/dL (28.0-37.0); MCV 85.7 fL (80.0-100.0); MPV 6.9 fl. (7.2-11.1); RBC 3.96 mil/uL (4.20-5.00); RDW-CV 15.3 % (10.5-14.5); WBC 8.6 thou/uL (4.0-11.0)
[2019-08-09 09:46] LABS: ALBUMIN 2.8 g/dL (3.4-5.0); CALCIUM 9.2 mg/dL (8.5-10.1); POTASSIUM 3.4 mmol/L (3.5-5.1); TOTAL BILIRUBIN 0.4 mg/dL (<0.1-1.0); TOTAL PROTEIN 7.7 g/dL (6.4-8.2)
--- NOTE | 2019-08-09 10:41 | NUR ---
ARRIVED AMBULATORY. MADE SELF COMFORTABLE IN RECLINER. DENIES ADVERSE REACTION TO PRIOR INFUSION OF SAME. DR. CONTRERAS HERE IN INFUSION LAB. PT SEEN AND CHART REVIEWED. NEW ORDER RECIEVED TO CONTINUE LABS AND MEDS FOR 1 WEEK. HE WILL SEE HER HERE IN INFUSION NEXT WEEK. INFUSION COMPLETED AND TOELRATED WELL. DRESSING TO MIDLINE CHANGED. GOOD BLOOD RETURN AND EASY FLUSH POST DRESSING CHANGE. DENIES QUESTIONS OR NEED AT DISCHRAGE.
--- NOTE | 2019-08-11 11:53 | CON ---
[address] [address] CONSULTATION Name: ANATOLIY MARTINSN Room: [facility].#: [id number] Admission: 08/09/19 Attend Phys: Uzair Garcia MD Discharge: Date of : 60 Report #: [id number] THIS REPORT FOR: //name// CC: Uzair Marmolejo DATE OF SERVICE: 08/09/2019 ATTENDING PHYSICIAN: Dr. Renee Marmolejo. HISTORY OF PRESENT ILLNESS: The patient returns in followup, having been hospitalized with complicated urinary tract infection. This does appear to be relapsing. She was found to have an extended-spectrum beta lactamase producing Escherichia coli. Clinically, has improved in particular the course of last 24-48 hours. Does have some persistent low back pain. Denies any fevers. Appetite has been fair. No pulmonary or gastrointestinal related complaints other than she notes some loose stools, which she attributes to diarrhea. She has completed roughly 1 week for a planned 2-week course of parenteral therapy with ertapenem treat the known multiple resistant organism. She is not aware of any new or localizing signs or symptoms. ASSESSMENT AND PLAN: Complicated urinary tract infection. At this point, would continue the prescribed course additional 1 week of parenteral therapy. We will see her in followup with the infusion area in 1 week, likely be able to remove the line at that point. Continue weekly labs. She is to call if problems or concerns. <ELECTRONICALLY SIGNED> By: Uzair Garcia MD 08/11/19 1153 0856 [id number] Garcia MD /nt
== END ==
LOC: M.INFUS 02:30
PROVIDERS: Specialist
DX: K52.9 Noninfective gastroenteritis and colitis, unspecified (principal)

== ENCOUNTER → 2019-08-10 | Outpatient (CLI) | payer MEDICARE, OTHER ==
[2019-08-10 08:09] VITALS: BP 133/95
--- NOTE | 2019-08-10 11:29 | NUR ---
ARRIVED AMBULATORY. MADE SELF COMFORTABLE. DENEIS ADVERSE REACTION TO PRIOR INFUSON OF SAME. MIDLINE INTACT AND PATENT. INFUSION COMPLETED AND TOELRATED WELL. DENIES QUESTIONS OR NEEDS AT DISCHARGE
== END ==
LOC: M.INFUS 07:10
DX: N39.0 Urinary tract infection, site not specified (principal); K52.9 Noninfective gastroenteritis and colitis, unspecified

== ENCOUNTER → 2019-08-11 | Outpatient (CLI) | payer MEDICARE, OTHER ==
[2019-08-11 08:20] VITALS: BP 110/64
--- NOTE | 2019-08-11 09:21 | NUR ---
MIDLINE INTACT AND PATENT. DENIES ADVERSE REACTION TO MULTIPEL INFUSIONS OF SAME. INFUSION COMPLETED AND TOLERATED WELL. DENEIS QUESTIONS OR NEEDS AT DISCHARGE.
== END ==
LOC: M.INFUS 01:48
DX: N39.0 Urinary tract infection, site not specified (principal)

== ENCOUNTER → 2019-08-12 | Outpatient (CLI) | payer MEDICARE, OTHER ==
[2019-08-12 08:35] VITALS: BP 136/70
--- NOTE | 2019-08-12 09:30 | NUR ---
DENEIS ADVERSE REACTION TO MULTIPLE INFUSIONS OF SAME. MIDLINE INTACT AND PATNET. INFUSION COMPLETED AND TOLERATED WELL. DENIES QUESTIONS OR NEEDS AT DISCHARGE.
== END ==
LOC: M.INFUS 02:36
DX: K52.9 Noninfective gastroenteritis and colitis, unspecified (principal)

== ENCOUNTER → 2019-08-15 | Outpatient (CLI) | payer MEDICARE, OTHER ==
[2019-08-15 08:05] VITALS: BP 119/73
== END ==
LOC: M.INFUS 05:42
DX: N39.0 Urinary tract infection, site not specified (principal)

== ENCOUNTER → 2019-08-16 | Outpatient (CLI) | payer MEDICARE, OTHER ==
[2019-08-16 08:05] VITALS: BP 153/75
[2019-08-16 08:29] LABS: HEMATOCRIT 33.9 % (37.0-47.0); HEMOGLOBIN 11.2 gm/dL (12.0-15.0); MCH 29.4 pg (26.0-34.0); MCHC 33.2 g/dL (28.0-37.0); MCV 88.7 fL (80.0-100.0); MPV 7.4 fl. (7.2-11.1); RBC 3.82 mil/uL (4.20-5.00); RDW-CV 14.1 % (10.5-14.5)
[2019-08-16 08:40] LABS: ALBUMIN 2.7 g/dL (3.4-5.0); CALCIUM 8.9 mg/dL (8.5-10.1); CREATININE 1.2 mg/dL (0.6-1.3); POTASSIUM 3.6 mmol/L (3.5-5.1); TOTAL BILIRUBIN 0.2 mg/dL (<0.1-1.0); TOTAL PROTEIN 7.7 g/dL (6.4-8.2)
--- NOTE | 2019-08-16 10:32 | NUR ---
ARRIVED AMBULATORY. MADE SELF COMFORTABLE IN RECLINER. AT CHAIRSIDE. PREETHIEIS ADVERSE REACTION TO MULTIPLE PRIOR INFUSION OF SAME. MIDLINE INTACT AND PATNET. WEEKLY LABS DRAWN PER ORDER. DR. CONTRERAS HERE AND REVIEWED CHART AND SPOKE WITH PT. LAB RESULTS RECIEVED AND CRITICL GLUCOSE CALL RECIEVED. DR. CONTRERAS WAS STILL IN AREA. NEW ORDER RECIEVED TO ADMINISTER 1X DOSE OF 30 UNITS REGULAR INSULIN. INSULIN GIVEN. MIDLINE DRESSING CHANGED. BLOOD SUGAR RECHECKED AND NOTED STILL HIGH ABOVE 500. PT BECAME TEARFUL AND STATED SHE WAS HUNGRY AND WAS GOING HOME AND WOULD MANAGE SUGAR FROM HOME. EDUCATION COMPLETED AND PT REFUSED TO STAY. PT LEFT AREA WITH . STATED HE WOULD BRING HER BACK TO ED IF SUGAR DID NOT GO DOWN WITH IN AN HOUR OR SO.
--- NOTE | 2019-08-17 12:18 | CON ---
[address] [address] CONSULTATION Name: MARTINSANATOLIY LEONARDO Room: [facility].#: [id number] Admission: 08/16/19 Attend Phys: Uzair Garcia MD Discharge: Date of : 60 Report #: [id number] THIS REPORT FOR: //name// CC: Uzair Garcíaa Francie DATE OF SERVICE: 08/16/2019 INFECTIOUS DISEASE CONSULTATION FOLLOWUP Seen in followup for complicated urinary tract infection due to multiple resistant organism receiving parenteral antimicrobial therapy. The patient returns today in follow up. She [facility]. She generally has been feeling somewhat better, does still have persistent bilateral lower back pain, occasionally radiates anteriorly, not aware of any significant fevers. Admits some chills. Appetite has been fair. Does admit to a recent sore throat that caused her to receive at least 1 infusion due to feeling sick. Complicated urinary tract infection. At this point, we would extend the antibiotics, should be roughly about 2-1/2 weeks total through the end of the week through additional days. Did have lab drawn. She had a markedly elevated blood sugar of 575. She was ordered insulin and she will go home and take her regular dosing. No call from the Infusion Center on Thursday to let know if indeed she is doing reasonably well, likely remove the catheter. At that point, discontinue antibiotics. <ELECTRONICALLY SIGNED> By: Uzair Garcia MD 08/17/19 1218 0737 [id number] Garcia MD /malou
== END ==
LOC: M.INFUS 05:07
PROVIDERS: Specialist
DX: N39.0 Urinary tract infection, site not specified (principal)

== ENCOUNTER → 2019-08-17 | Outpatient (CLI) | payer MEDICARE, OTHER ==
[2019-08-17 08:05] VITALS: BP 149/67
--- NOTE | 2019-08-17 13:22 | NUR ---
ARRIVED AMBULATORY. MADE SELF COMFORTABLE IN RECLINER. MIDLINE INTACT AND PATENT. DENIES ADVERSE REACTION TO MULTIPLE INFUSIONS OF SAME. INFUSION COMPLETED AND TOELRATED WELL. DENIES QUESTIONS OR NEEDS AT DISCHARGE.
== END ==
LOC: M.INFUS 05:02
DX: N39.0 Urinary tract infection, site not specified (principal)

== ENCOUNTER → 2019-08-18 | Outpatient (CLI) | payer MEDICARE, OTHER ==
[2019-08-18 08:00] VITALS: BP 138/83
== END ==
LOC: M.INFUS 04:07
DX: N39.0 Urinary tract infection, site not specified (principal); R73.09 Other abnormal glucose

== ENCOUNTER → 2019-08-19 | Outpatient (CLI) | payer MEDICARE, OTHER ==
[2019-08-19 09:38] VITALS: BP 117/68
--- NOTE | 2019-08-19 11:20 | NUR ---
[id number] AMBULATORY. MADE SELF COMFORTABLE IN RECLINER. MIDLINE INTACT AND PATENT. INFUSION COMPLETED AND TOELRATED WELL. CALL PLACED ADN SPOKE WITH DR. CONTRERAS. NEW ORDER RECIEVED TO D/C INVANZ AFTER TODAY'S DOSE AND PULL MIDLINE. PT UPDATED. VOICED UNDERSTANDING AND AGREED. MIDLINE REMOVED WITH OUT DIFFICULTY. SARAI QUESTIONS OR NEEDS AT DISCHARGE.
== END ==
LOC: M.INFUS 04:04
DX: N39.0 Urinary tract infection, site not specified (principal)

== ENCOUNTER → 2019-10-04 | Outpatient (CLI) | payer MEDICARE, OTHER | LOC: M.RAD 09:12 | DX: R13.10 Dysphagia, unspecified (principal) ==

== ENCOUNTER → 2019-10-05 | Outpatient (CLI) | payer MEDICARE, OTHER | LOC: M.WC 04:50 | DX: E11.621 Type 2 diabetes mellitus with foot ulcer (principal); L97.521 Non-pressure chronic ulcer of other part of left foot limited to breakdown of skin; L97.511 Non-pressure chronic ulcer of other part of right foot limited to breakdown of skin; E78.5 Hyperlipidemia, unspecified; E11.36 Type 2 diabetes mellitus with diabetic cataract; I25.119 Atherosclerotic heart disease of native coronary artery with unspecified angina pectoris; I10 Essential (primary) hypertension; K21.9 Gastro-esophageal reflux disease without esophagitis; F32.9 Major depressive disorder, single episode, unspecified; F41.9 Anxiety disorder, unspecified; Z87.891 Personal history of nicotine dependence; Z90.710 Acquired absence of both cervix and uterus; Z98.41 Cataract extraction status, right eye; Z98.42 Cataract extraction status, left eye; Z95.828 Presence of other vascular implants and grafts; Z85.118 Personal history of other malignant neoplasm of bronchus and lung ==

== ENCOUNTER 2019-11-11 18:30 | Inpatient (IN) | payer MEDICARE, OTHER ==
[~2019-11-11] VITALS: Ht 152.4 cm; Wt 104.8 kg
[2019-11-11 18:34] VITALS: BP 120/73
[2019-11-11 19:07] LABS: ABSOLUTE BASOPHILS 0.1 thou/uL (0.0-0.2); ABSOLUTE EOSINOPHILS 0.2 thou/uL (0.0-0.7); ABSOLUTE LYMPHOCYTES 1.4 thou/uL (0.8-5.3); ABSOLUTE MONOCYTES 0.8 thou/uL (0.0-1.2); ABSOLUTE NEUTROPHILS 6.4 thou/uL (1.6-8.1); BASOPHILS 0.7 %; EOSINOPHILS 2.3 %; HEMATOCRIT 36.5 % (37.0-47.0); HEMOGLOBIN 12.8 gm/dL (12.0-15.0); LYMPHOCYTES 16.2 %; MCH 29.2 pg (26.0-34.0); MCHC 35.2 g/dL (28.0-37.0); MONOCYTES 8.5 %; MPV 8.4 fl. (7.2-11.1); NUCLEATED RBCS 0 /100WBC; PLATELET COUNT* 348 thou/uL (150-400); POLYS 72.3 %; RBC 4.39 mil/uL (4.20-5.00); RDW-CV 16.5 % (10.5-14.5); WBC 8.9 thou/uL (4.0-11.0)
[2019-11-11 19:15] LABS: CREATININE 1.1 mg/dL (0.6-1.3)
[2019-11-11 19:16] LABS: APTT 27.5 Seconds (25.0-31.3); INR 1.1; PROTIME 10.9 Seconds (9.20-11.50)
[2019-11-11 19:20] LABS: ALBUMIN 3.3 g/dL (3.4-5.0); TOTAL BILIRUBIN 0.3 mg/dL (<0.1-1.0); TOTAL PROTEIN 8.8 g/dL (6.4-8.2)
[2019-11-11 19:23] LABS: POTASSIUM 2.8 mmol/L (3.5-5.1)
[2019-11-11 21:17] LABS: URINE BILIRUBIN NEGATIVE (Negative); URINE BLOOD 1+ (Negative); URINE CLARITY CLEAR; URINE COLOR YELLOW; URINE GLUCOSE-RANDOM 3+ (Negative); URINE KETONES NEGATIVE (Negative); URINE LEUKOCYTES-REFLEX 2+ (Negative); URINE NITRITE-REFLEX NEGATIVE (Negative); URINE PROTEIN TRACE (Negative); URINE UROBILINOGEN 0.2 E.U./dl (0.2-1.0)
[2019-11-11 21:24] LABS: AMP/METHAMP POSITIVE (Negative); BARBITURATES Negative (Negative); BENZODIAZEPINES Negative (Negative); COCAINE Negative (Negative); METHADONE Negative (Negative); OPIATES Negative (Negative); PCP Negative (Negative); SQUAMOUS 0-3 Few /LPF (0-3); THC Negative (Negative)
[2019-11-11 21:25] VITALS: BP 131/86
[2019-11-11 21:25] LABS: BACTERIA-REFLEX >30 Many /HPF (None Seen); CASTS None Seen /LPF (None Seen); CRYSTALS None Seen /LPF (None Seen); MUCUS 4-6 Moderate strn/LPF (None Seen); URINE WBC-REFLEX >25 Many /HPF (0-5); WBC CLUMPS Moderate (None Seen)
[2019-11-11 21:41] VITALS: BP 145/85
[2019-11-11] MEDS ORDERED: LANTUS SUBQ (23:34)
[2019-11-11] MEDS ORDERED: ZOFRAN4 MG PO (23:34)
[2019-11-12] VITALS (7 sets, daily range): BP systolic 88–131; BP diastolic 36–71
[2019-11-13 04:00] VITALS: BP 114/57
[2019-11-13 05:12] LABS: HEMATOCRIT 30.7 % (37.0-47.0); MCH 29.9 pg (26.0-34.0); MCHC 34.9 g/dL (28.0-37.0); MCV 85.4 fL (80.0-100.0); MPV 8.9 fl. (7.2-11.1); RBC 3.59 mil/uL (4.20-5.00); RDW-CV 16.1 % (10.5-14.5); WBC 6.2 thou/uL (4.0-11.0)
[2019-11-13 05:14] LABS: ALBUMIN 2.2 g/dL (3.4-5.0); CALCIUM 8.3 mg/dL (8.5-10.1); CREATININE 0.9 mg/dL (0.6-1.3); MAGNESIUM 1.9 mg/dL (1.8-2.4); PHOSPHORUS* 2.4 mg/dL (2.5-4.9)
[2019-11-13 05:54] LABS: HEMOGLOBIN 10.7 gm/dL (12.0-15.0)
[2019-11-13 07:32] VITALS: BP 121/54
[2019-11-13 12:03] VITALS: BP 130/55
[2019-11-13 16:00] VITALS: BP 104/59
[2019-11-13 19:40] VITALS: BP 116/47
[2019-11-14] VITALS: BP 101/48
[2019-11-14 03:07] LABS: GLYCOHEMOGLOBIN (HGB A1C) 12.9 % (4.8-5.6)
[2019-11-14 04:00] VITALS: BP 134/66
[2019-11-14 05:26] LABS: ALBUMIN 2.3 g/dL (3.4-5.0); CALCIUM 8.6 mg/dL (8.5-10.1); CREATININE 0.8 mg/dL (0.6-1.3); MAGNESIUM 1.9 mg/dL (1.8-2.4); PHOSPHORUS* 2.7 mg/dL (2.5-4.9); POTASSIUM 3.9 mmol/L (3.5-5.1)
[2019-11-14] MEDS ORDERED: ZOFRAN4 MG PO (08:24)
[2019-11-14 12:39] VITALS: BP 135/77
--- NOTE | 2019-11-14 13:06 | EKG ---
[place] [address] ELECTROCARDIOGRAM REPORT Name: ANATOLIY MARTINS Room: [address] ADM IN M.R.#: [id number] Admission: 11/11/19 Attend Phys: Natalie wade Sa Discharge: Date of : 60 Date of Service: 11/11/19 1848 Report #: [id number] THIS REPORT FOR: //name// [facility] ED Test Date: 2019-11-11 Test Time: 18:48:32 Pat Name: ANATOLIY MARTINS Department: Room: [facility] Gender: F Signal Inspector: TS : 1960 Requested By: Nicolás Sanchez Order Number: [id number] MD: Tho Ruiz Measurements Intervals [place] Rate: 77 P: 41 FL: 129 QRS: 23 QRSD: 97 T: 169 QT: 394 QTc: 446 Interpretive Statements Sinus rhythm Left atrial enlargement Nonspecific T abnrm, anterolateral leads Compared to ECG 06/27/2019 11:07:58 Sinus tachycardia no longer present Electronically Signed On 11-14-2019 13:04:45 CDT by Tho Ruiz [email or web address] <ELECTRONICALLY SIGNED> By: Tho Ruiz MD, [facility] 11/14/19 1304 1848 1848 Tho Ruiz MD, [facility] /EPI
== END 2019-11-14 13:05 | disposition home or self-care (01) | DRG 439 ==
LOC: M.ERS 18:30 → M.TBA-ER 20:06 → M.2W 20:06
PROVIDERS: Nurse Practitioner Psychiatric/Mental Health; ADMIT Family Medicine
DX: K85.90 Acute pancreatitis without necrosis or infection, unspecified (principal); Z68.42 Body mass index [BMI] 45.0-49.9, adult; K86.1 Other chronic pancreatitis; E66.01 Morbid (severe) obesity due to excess calories; F15.10 Other stimulant abuse, uncomplicated; E87.6 Hypokalemia; I25.10 Atherosclerotic heart disease of native coronary artery without angina pectoris; F41.9 Anxiety disorder, unspecified; I10 Essential (primary) hypertension; E11.65 Type 2 diabetes mellitus with hyperglycemia; E78.00 Pure hypercholesterolemia, unspecified; E78.5 Hyperlipidemia, unspecified; F32.9 Major depressive disorder, single episode, unspecified; Z95.5 Presence of coronary angioplasty implant and graft; Z95.1 Presence of aortocoronary bypass graft; Z85.118 Personal history of other malignant neoplasm of bronchus and lung; Z90.49 Acquired absence of other specified parts of digestive tract; Z90.710 Acquired absence of both cervix and uterus; Z98.42 Cataract extraction status, left eye; Z98.41 Cataract extraction status, right eye; Z79.4 Long term (current) use of insulin; Z79.82 Long term (current) use of aspirin; Z79.899 Other long term (current) drug therapy; Z91.14 Patient's other noncompliance with medication regimen

== ENCOUNTER 2020-05-16 08:02 | Inpatient (IN) | payer MEDICARE, OTHER ==
[2020-05-16] VITALS (11 sets, daily range): BP systolic 101–166; BP diastolic 51–72
[~2020-05-16] VITALS: Ht 152.4 cm; Wt 55.3 kg
[~2020-05-16 08:02] MED LIST changes: +LANTUS SUBQ; +ZOFRAN4 MG PO
[2020-05-16] MEDS ORDERED: FLOVENT HFA 4444 MCG INH (08:09)
[2020-05-16] MEDS ORDERED: PROAIR DIGIHAL90 MCG INH (08:10)
[2020-05-16] MEDS ORDERED: PROTONIX40 M2 PO (08:10)
[2020-05-16 08:41] LABS: HEMATOCRIT 38.2 % (37.0-47.0); HEMOGLOBIN 12.6 gm/dL (12.0-15.0); MCH 30.4 pg (26.0-34.0); MCHC 32.9 g/dL (28.0-37.0); MCV 92.4 fL (80.0-100.0); MPV 9.1 fl. (7.2-11.1); NUCLEATED RBCS 0 /100WBC; PLATELET COUNT* 301 thou/uL (150-400); RBC 4.13 mil/uL (4.20-5.00); RDW-CV 12.9 % (10.5-14.5); WBC 18.5 thou/uL (4.0-11.0)
[2020-05-16 08:42] LABS: BE -11.8 mmol/L (-2 to +3); PCO2 VENOUS 41.6 mmHg (41.0-51.0); PO2 VENOUS 35.1 mmHg (35.0-45.0)
[2020-05-16 09:03] LABS: ALBUMIN 3.2 g/dL (3.4-5.0); CALCIUM 9.1 mg/dL (8.5-10.1); CREATININE 1.6 mg/dL (0.6-1.3); POTASSIUM 4.1 mmol/L (3.5-5.1); TOTAL BILIRUBIN 0.6 mg/dL (<0.1-1.0); TOTAL PROTEIN 7.2 g/dL (6.4-8.2)
[2020-05-16 09:32] LABS: ABSOLUTE LYMPHOCYTES 0.6 thou/uL (0.8-5.3); ABSOLUTE MONOCYTES 0.4 thou/uL (0.0-1.2); ABSOLUTE NEUTROPHILS 17.6 thou/uL (1.6-8.1); PLATELET ESTIMATE ADEQUATE
[2020-05-16 11:47] LABS: URINE BILIRUBIN NEGATIVE (Negative); URINE BLOOD TRACE (Negative); URINE CLARITY CLEAR; URINE COLOR YELLOW; URINE GLUCOSE-RANDOM 3+ (Negative); URINE LEUKOCYTES-REFLEX 1+ (Negative); URINE PROTEIN NEGATIVE (Negative); URINE UROBILINOGEN 0.2 E.U./dl (0.2-1.0)
[2020-05-16 12:01] LABS: ANION GAP 20 mmol/L (7-16); BUN 15 mg/dL (7-18); CALCIUM 8.7 mg/dL (8.5-10.1); CHLORIDE 92 mmol/L (98-107); CO2 18 mmol/L (21-32); CREATININE 1.5 mg/dL (0.6-1.3); POTASSIUM 3.3 mmol/L (3.5-5.1); SODIUM 130 mmol/L (136-145)
[2020-05-16 12:01] LABS: ACETEST (KETONE CONFIRMATORY) ND (Negative); URINE KETONES 3+ (Negative); URINE NITRITE-REFLEX POSITIVE (Negative)
[2020-05-16 12:02] LABS: GLUCOSE 547 mg/dL (70-99)
[2020-05-16 12:02] LABS: CASTS None Seen /LPF (None Seen); CRYSTALS None Seen /LPF (None Seen); SQUAMOUS 0-3 Few /LPF (0-3); URINE RBC 0-2 Rare /HPF (0-2); URINE WBC-REFLEX 6-15 Few /HPF (0-5)
--- NOTE | 2020-05-16 14:23 | EKG ---
[place] [address] ELECTROCARDIOGRAM REPORT Name: ANATOLIY MARTINS Room: [address] ADM IN M.R.#: [id number] Admission: 05/16/20 Attend Phys: Karyn Swenson, Discharge: Date of : 60 Date of Service: 05/16/20 0848 Report #: [id number] THIS REPORT FOR: //name// [facility] ED Test Date: 2020-05-16 Test Time: 08:48:33 Pat Name: ANATOLIY MARTINS Department: Room: 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 05/16/20 1423 0848 0848 Tho Ruiz MD, [facility] /EPI
[2020-05-16 15:59] LABS: ALBUMIN 2.9 g/dL (3.4-5.0); CALCIUM 8.4 mg/dL (8.5-10.1); CREATININE 1.3 mg/dL (0.6-1.3); MAGNESIUM 1.7 mg/dL (1.8-2.4); PHOSPHORUS* 1.6 mg/dL (2.5-4.9); POTASSIUM 3.3 mmol/L (3.5-5.1)
[2020-05-16 20:39] LABS: ALBUMIN 2.7 g/dL (3.4-5.0); CALCIUM 8.5 mg/dL (8.5-10.1); CREATININE 1.1 mg/dL (0.6-1.3); MAGNESIUM 2.2 mg/dL (1.8-2.4); PHOSPHORUS* 1.7 mg/dL (2.5-4.9); POTASSIUM 3.3 mmol/L (3.5-5.1)
[2020-05-16 22:23] LABS: URINE BILIRUBIN NEGATIVE (Negative); URINE BLOOD TRACE (Negative); URINE CLARITY CLEAR; URINE COLOR YELLOW; URINE GLUCOSE-RANDOM 2+ (Negative); URINE KETONES 1+ (Negative); URINE LEUKOCYTES 1+ (Negative); URINE NITRITE POSITIVE (Negative); URINE PROTEIN NEGATIVE (Negative); URINE UROBILINOGEN 0.2 E.U./dl (0.2-1.0)
[2020-05-16 22:59] LABS: CASTS None Seen /LPF (None Seen); SQUAMOUS 0-3 Few /LPF (0-3)
[2020-05-16 23:00] LABS: URINE RBC 3-10 Few /HPF (0-2); URINE WBC >25 Many /HPF (0-5)
[2020-05-16 23:01] LABS: CRYSTALS None Seen /LPF (None Seen)
[2020-05-17 01:22] LABS: ALBUMIN 2.3 g/dL (3.4-5.0); MAGNESIUM 1.9 mg/dL (1.8-2.4)
[2020-05-17 01:24] LABS: POTASSIUM 4.3 mmol/L (3.5-5.1)
[2020-05-17 04:55] LABS: ABSOLUTE LYMPHOCYTES 0.6 thou/uL (0.8-5.3); ABSOLUTE MONOCYTES 0.8 thou/uL (0.0-1.2); ABSOLUTE NEUTROPHILS 9.1 thou/uL (1.6-8.1); BASOPHILS 0.2 %; EOSINOPHILS 0.4 %; HEMATOCRIT 30.9 % (37.0-47.0); LYMPHOCYTES 5.9 %; MCH 31.6 pg (26.0-34.0); MCHC 35.4 g/dL (28.0-37.0); MCV 89.4 fL (80.0-100.0); MONOCYTES 7.1 %; MPV 8.3 fl. (7.2-11.1); NUCLEATED RBCS 0 /100WBC; POLYS 86.4 %; RBC 3.46 mil/uL (4.20-5.00); RDW-CV 13.2 % (10.5-14.5); WBC 10.6 thou/uL (4.0-11.0)
[2020-05-17 05:04] LABS: PLATELET COUNT* 197 thou/uL (150-400)
[2020-05-17 05:14] LABS: BE -5.8 mmol/L (-2 to +3); PCO2 33.2 mmHg (35.0-45.0); PO2 93.4 mmHg (75.0-100.0); pH 7.365 (7.340-7.450)
[2020-05-17 06:02] LABS: ALBUMIN 2.2 g/dL (3.4-5.0); ALKALINE PHOSPHATASE 206 U/L (46-116); ANION GAP 9 mmol/L (7-16); BUN 9 mg/dL (7-18); CALCIUM 8.1 mg/dL (8.5-10.1); CHLORIDE 107 mmol/L (98-107); CO2 21 mmol/L (21-32); GLUCOSE 149 mg/dL (70-99); PHOSPHORUS* 1.9 mg/dL (2.5-4.9); POTASSIUM 4.6 mmol/L (3.5-5.1); SGOT 17 U/L (15-37); SGPT 16 U/L (30-65); SODIUM 137 mmol/L (136-145); TOTAL BILIRUBIN 0.2 mg/dL (<0.1-1.0); TOTAL PROTEIN 5.7 g/dL (6.4-8.2)
[2020-05-17 08:00] VITALS: BP 134/60
[2020-05-17 10:28] LABS: ALBUMIN 2.1 g/dL (3.4-5.0); CALCIUM 7.7 mg/dL (8.5-10.1); CREATININE 0.9 mg/dL (0.6-1.3); MAGNESIUM 1.6 mg/dL (1.8-2.4); PHOSPHORUS* 2.1 mg/dL (2.5-4.9); POTASSIUM 4.9 mmol/L (3.5-5.1)
[2020-05-17 16:13] VITALS: BP 96/53
[2020-05-18] VITALS: BP 87/43
[2020-05-18 04:00] VITALS: BP 98/48
[2020-05-18 04:21] LABS: HEMATOCRIT 30.7 % (37.0-47.0); HEMOGLOBIN 10.6 gm/dL (12.0-15.0); MCH 31.3 pg (26.0-34.0); MCHC 34.6 g/dL (28.0-37.0); MCV 90.6 fL (80.0-100.0); MPV 8.9 fl. (7.2-11.1); RBC 3.39 mil/uL (4.20-5.00); RDW-CV 13.8 % (10.5-14.5); WBC 11.3 thou/uL (4.0-11.0)
[2020-05-18 04:35] LABS: ALBUMIN 1.9 g/dL (3.4-5.0); ALKALINE PHOSPHATASE 182 U/L (46-116); ANION GAP 8 mmol/L (7-16); BUN 9 mg/dL (7-18); CALCIUM 8.1 mg/dL (8.5-10.1); CHLORIDE 104 mmol/L (98-107); CO2 23 mmol/L (21-32); CREATININE 0.9 mg/dL (0.6-1.3); GLUCOSE 102 mg/dL (70-99); MAGNESIUM 2.2 mg/dL (1.8-2.4); POTASSIUM 4.4 mmol/L (3.5-5.1); SGOT 14 U/L (15-37); SGPT 11 U/L (30-65); SODIUM 135 mmol/L (136-145); TOTAL BILIRUBIN 0.2 mg/dL (<0.1-1.0); TOTAL PROTEIN 5.2 g/dL (6.4-8.2)
[2020-05-18 07:30] VITALS: BP 85/64
[2020-05-18 12:47] VITALS: BP 116/61
[2020-05-18 16:00] VITALS: BP 145/68
[2020-05-18 19:36] VITALS: BP 100/42
[2020-05-18 23:25] LABS: URINE BILIRUBIN NEGATIVE (Negative); URINE BLOOD NEGATIVE (Negative); URINE CLARITY CLEAR; URINE COLOR YELLOW; URINE GLUCOSE-RANDOM 1+ (Negative); URINE KETONES NEGATIVE (Negative); URINE LEUKOCYTES TRACE (Negative); URINE NITRITE NEGATIVE (Negative); URINE PROTEIN NEGATIVE (Negative); URINE SPECIFIC GRAVITY <= 1.005 (1.005-1.030); URINE UROBILINOGEN 0.2 E.U./dl (0.2-1.0)
[2020-05-19 01:45] LABS: CASTS None Seen /LPF (None Seen); SQUAMOUS 0-3 Few /LPF (0-3)
[2020-05-19 01:46] LABS: URINE WBC 6-15 Few /HPF (0-5)
[2020-05-19 01:47] LABS: BACTERIA None Seen /HPF (None Seen); CRYSTALS None Seen /LPF (None Seen); URINE RBC None Seen /HPF (0-2); WBC CLUMPS Few (None Seen)
[2020-05-19 04:21] LABS: ANION GAP 6 mmol/L (7-16); BUN 9 mg/dL (7-18); CALCIUM 8.3 mg/dL (8.5-10.1); CHLORIDE 104 mmol/L (98-107); CO2 26 mmol/L (21-32); CREATININE 0.9 mg/dL (0.6-1.3); GLUCOSE 167 mg/dL (70-99); SODIUM 136 mmol/L (136-145)
[2020-05-19 08:03] VITALS: BP 150/56
[2020-05-19] MEDS ORDERED: HUMALOG100 UNIT/1 SUBQ ×2 (08:32)
[2020-05-19] MEDS ORDERED: MACROBID 100 M100 MG PO (08:32)
[2020-05-19] MEDS ORDERED: LANTUS SUBQ (08:32)
[2020-05-19 09:34] VITALS: BP 150/56
[2020-05-19 11:50] VITALS: BP 150/56
[2020-05-19 13:16] VITALS: BP 150/56
== END 2020-05-19 13:58 | disposition home or self-care (01) | DRG 637 ==
LOC: M.ERS 08:02 → M.TBA-ER 09:31 → M.ICU 09:31 → M.2W 05-17 19:30 → M.ORTHSURG 05-18 18:25
PROVIDERS: Emergency Medicine Emergency Medical Services; Internal Medicine; ADMIT Internal Medicine; ATTEND Internal Medicine
DX: E10.10 Type 1 diabetes mellitus with ketoacidosis without coma (principal); N17.0 Acute kidney failure with tubular necrosis; R65.11 Systemic inflammatory response syndrome (SIRS) of non-infectious origin with acute organ dysfunction; N39.0 Urinary tract infection, site not specified; I25.10 Atherosclerotic heart disease of native coronary artery without angina pectoris; F32.9 Major depressive disorder, single episode, unspecified; F41.9 Anxiety disorder, unspecified; E10.22 Type 1 diabetes mellitus with diabetic chronic kidney disease; I12.9 Hypertensive chronic kidney disease with stage 1 through stage 4 chronic kidney disease, or unspecified chronic kidney disease; N18.30 Chronic kidney disease, stage 3 unspecified; E78.5 Hyperlipidemia, unspecified; E78.00 Pure hypercholesterolemia, unspecified; Z20.828 Contact with and (suspected) exposure to other viral communicable diseases; Z95.1 Presence of aortocoronary bypass graft; Z85.118 Personal history of other malignant neoplasm of bronchus and lung; Z98.42 Cataract extraction status, left eye; Z98.41 Cataract extraction status, right eye; Z90.49 Acquired absence of other specified parts of digestive tract; Z90.710 Acquired absence of both cervix and uterus; Z79.82 Long term (current) use of aspirin; Z79.4 Long term (current) use of insulin; Z79.899 Other long term (current) drug therapy; Z91.14 Patient's other noncompliance with medication regimen

== ENCOUNTER → 2020-05-29 | Outpatient (CLI) | payer MEDICARE, OTHER ==
[~2020-05-29] MED LIST changes: +FLOVENT HFA 4444 MCG INH; +HUMALOG100 UNIT/1 SUBQ; +MACROBID 100 M100 MG PO; +PROAIR DIGIHAL90 MCG INH; +PROTONIX40 M2 PO
== END ==
LOC: M.ULTRA 10:51
PROVIDERS: ATTEND Nurse Practitioner
DX: M71.22 Synovial cyst of popliteal space [Baker], left knee (principal); R60.9 Edema, unspecified; R06.02 Shortness of breath; I50.9 Heart failure, unspecified

== ENCOUNTER → 2020-05-30 | Outpatient (CLI) | payer MEDICARE, OTHER ==
--- NOTE | 2020-05-30 12:14 | 2DMMODE ---
[place] [address] 2 D/M-MODE ECHOCARDIOGRAM Name: ANATOLIY MARTINS Room: [facility]#: [id number] Admission: 05/30/20 Attend Phys: Abril George, Discharge: Date of : 60 Date of Service: 05/30/20 1214 Report #: [id number] THIS REPORT FOR: cc: Renee Marmolejo,Renee Patel,Tho Bae MD [facility] ~ APPROVED REPORT Study performed: 05/30/2020 09:03:44 EXAM: Comprehensive 2D, Doppler, and color-flow Echocardiogram Patient Location: Out-Patient BSA: 1.54 HR: 98 bpm Other Information Study Quality: Adequate Indications Dyspnea Peripheral Edema 2D Dimensions IVSd: 11.16 (7-11mm) LVOT Diam: 18.63 (18-24mm) LVDd: 37.85 mm PWd: 9.03 (7-11mm) Ascending Ao: 26.98 (22-36mm) LVDs: 22.10 (25-40mm) Aortic Root: 25.95 mm Volumes Left Atrial Volume (Systole) LA ESV Index: 15.70 mL/m2 Aortic Valve AoV Peak Robert.: 0.84 m/s AO Peak Gr.: 2.80 mmHg LVOT Max P.93 mmHg AO Mean Gr.: 1.55 mmHg LVOT Mean P.37 mmHg LVOT Max V: 0.86 m/s AO V2 VTI: 15.64 cm LVOT Mean V: 0.54 m/s WENDY (VTI): 2.62 cm2 LVOT V1 VTI: 15.06 [place] [address] 2 D/M-MODE ECHOCARDIOGRAM Name: ANATOLIY MARTINS Room: [facility]#: [id number] Admission: 05/30/20 Attend Phys: Abril George, Discharge: Date of : 60 Date of Service: 05/30/20 1214 Report #: [id number] E/A Ratio: 0.90 MV Decel. Time: 130.53 ms MV E Max Robert.: 0.88 m/s MV PHT: 37.85 ms MVA (PHT): 5.81 cm2 TDI E/Lateral E': 8.80 E/Medial E': 9.78 Medial E' Robert.: 0.09 m/s Lateral E' Robert.: 0.10 m/s Pulmonary Valve PV Peak Robert.: 1.01 m/s PV Peak Gr.: 4.07 mmHg Tricuspid Valve RAP Estimate: 5.00 mmHg TR Peak Gr.: 22.84 mmHg RVSP: 27.84 mmHg PA Pressure: 27.84 mmHg Left Ventricle The left ventricle is normal size. There is normal LV segmental wall motion. There is normal left ventricular wall thickness. Left ventricular systolic function is normal. The left ventricular ejection fraction is within the normal range. LVEF is 60-65%. Grade I - abnormal relaxation pattern. Right Ventricle The right ventricle is normal size. The right ventricular systolic function is normal. Atria The left atrium size is normal. The right atrium size is normal. Aortic Valve The aortic valve is normal in structure. No aortic regurgitation is present. There is no aortic valvular stenosis. Mitral Valve The mitral valve is normal in structure. trace mitral regurgitation. No evidence of mitral valve stenosis. Tricuspid Valve The tricuspid valve is normal in structure. Mild [place] [address] 2 D/M-MODE ECHOCARDIOGRAM Name: ANATOLIY MARTINS Room: [facility]#: [id number] Admission: 05/30/20 Attend Phys: Abril George, Discharge: Date of : 60 Date of Service: 05/30/20 1214 Report #: [id number] Pulmonic Valve Pulmonic valve is not well visualized. There is no pulmonic valvular regurgitation. Great Vessels The aortic root is normal in size. IVC is normal in size and collapses >50% with inspiration. Pericardium There is no pericardial effusion. <Conclusion> Left ventricular systolic function is normal. The left ventricular ejection fraction is within the normal range. <ELECTRONICALLY SIGNED> By: Tho Ruiz MD, FACC 05/30/201213 13 13 Tho Ruiz MD, FACC /INF
== END ==
LOC: M.CRD 08:56
PROVIDERS: ATTEND Nurse Practitioner
DX: I07.1 Rheumatic tricuspid insufficiency (principal); R60.9 Edema, unspecified

== ENCOUNTER 2021-03-22 16:08 | Emergency (ER) | payer MEDICARE, OTHER ==
[~2021-03-22] VITALS: Ht 152.4 cm; Wt 68.0 kg
[2021-03-22 16:18] VITALS: BP 124/66
[2021-03-22] MEDS ORDERED: PREDNISONE 20 M20 M1 PO (17:01)
[2021-03-22] MEDS ORDERED: ZPAK PO (17:01)
== END 2021-03-22 17:10 | disposition home or self-care (01) ==
LOC: M.ERS 16:08
DX: J40 Bronchitis, not specified as acute or chronic (principal); Z20.822 Contact with and (suspected) exposure to COVID-19; R51.9 Headache, unspecified; E11.9 Type 2 diabetes mellitus without complications; I10 Essential (primary) hypertension; E78.00 Pure hypercholesterolemia, unspecified; F32.9 Major depressive disorder, single episode, unspecified; F41.9 Anxiety disorder, unspecified; Z90.711 Acquired absence of uterus with remaining cervical stump; Z90.89 Acquired absence of other organs; Z90.49 Acquired absence of other specified parts of digestive tract; Z79.4 Long term (current) use of insulin; Z79.51 Long term (current) use of inhaled steroids; Z79.82 Long term (current) use of aspirin; Z79.899 Other long term (current) drug therapy

== ENCOUNTER 2021-04-26 02:28 | Inpatient (IN) | payer MEDICARE, OTHER ==
[2021-04-26] VITALS (7 sets, daily range): BP systolic 70–135; BP diastolic 43–73
[~2021-04-26] VITALS: Ht 152.4 cm; Wt 65.8 kg
[~2021-04-26 02:28] MED LIST changes: +PREDNISONE 20 M20 M1 PO; +ZPAK PO
[2021-04-26] MEDS ORDERED: METFORMIN HCL500 MG PO (02:41)
[2021-04-26 03:05] LABS: ABSOLUTE BASOPHILS 0.1 thou/uL (0.0-0.2); ABSOLUTE EOSINOPHILS 0.2 thou/uL (0.0-0.7); ABSOLUTE LYMPHOCYTES 1.3 thou/uL (0.8-5.3); ABSOLUTE MONOCYTES 0.7 thou/uL (0.0-1.2); ABSOLUTE NEUTROPHILS 5.5 thou/uL (1.6-8.1); BASOPHILS 0.9 %; EOSINOPHILS 2.4 %; HEMATOCRIT 37.9 % (37.0-47.0); HEMOGLOBIN 12.8 gm/dL (12.0-15.0); LYMPHOCYTES 17.2 %; MCH 28.1 pg (26.0-34.0); MCHC 33.9 g/dL (28.0-37.0); MCV 83.1 fL (80.0-100.0); MONOCYTES 9.1 %; MPV 7.5 fl. (7.2-11.1); NUCLEATED RBCS 0 /100WBC; PLATELET COUNT* 250 thou/uL (150-400); POLYS 70.4 %; RBC 4.56 mil/uL (4.20-5.00); RDW-CV 14.8 % (10.5-14.5); WBC 7.8 thou/uL (4.0-11.0)
[2021-04-26 03:55] LABS: CALCIUM 9.5 mg/dL (8.5-10.1); CREATININE 2.3 mg/dL (0.6-1.3); POTASSIUM 3.4 mmol/L (3.5-5.1)
[2021-04-26 04:06] LABS: ALBUMIN 3.8 g/dL (3.4-5.0); MAGNESIUM 2.2 mg/dL (1.8-2.4); TOTAL BILIRUBIN 0.2 mg/dL (<0.1-1.0); TOTAL PROTEIN 7.8 g/dL (6.4-8.2)
[2021-04-26 06:27] LABS: URINE BILIRUBIN NEGATIVE (Negative); URINE BLOOD TRACE (Negative); URINE CLARITY CLEAR; URINE COLOR YELLOW; URINE GLUCOSE-RANDOM 3+ (Negative); URINE KETONES NEGATIVE (Negative); URINE LEUKOCYTES-REFLEX 1+ (Negative); URINE NITRITE-REFLEX NEGATIVE (Negative); URINE PROTEIN NEGATIVE (Negative); URINE SPECIFIC GRAVITY <= 1.005 (1.005-1.030); URINE UROBILINOGEN 0.2 E.U./dl (0.2-1.0)
[2021-04-26 06:42] LABS: BACTERIA-REFLEX None Seen /HPF (None Seen); CASTS None Seen /LPF (None Seen); CRYSTALS None Seen /LPF (None Seen); MUCUS None Seen strn/LPF (None Seen); SQUAMOUS 4-10 Moderate /LPF (0-3); URINE RBC 0-2 Rare /HPF (0-2)
--- NOTE | 2021-04-26 09:36 | NUR ---
CM ASSESSMENT: PT A&O, NORMALLY INDEPENDENT WITH ADL'S, AND ACTIVE. PT RESIDES AT HOME WITH HER SPOUSE, AND DTR. PT DOES NOT USE ANY DME FOR MOBILITY, BUT INFORMS THAT SHE OWNS A WALKER. PT HAS 0 HX OF HH OR SNF. CM WILL REMAIN AVAILABLE TO ASSIST AND FOLLOW WITH D/C PLANNING NEEDED.
--- NOTE | 2021-04-26 10:45 | NUR ---
WOUND NURSE: PATIENT SEEN TO ADDRESS LESION ON THE PLANTAR SURFACE OF THE RIGHT GREAT TOE. MEASURES 0.2 X 4.0, X 0.2 CM. PRESENTS A LINEAR FISSURE IN THE CREASE OF THE TOE. CONTAINS RED, NONGRANULATING TISSUE IN THE WOUND BED. SCANT AMOUNT OF DRIED SANGUINOUS DRAINAGE PRESENT. PATIENT REPORTS SHE SEE'S DR BOWMAN AND WAS SUPPOSED TO SEE HIM AT HIS OFFICE TODAY REGARDING THIS WOUND. SPOKE WITH DR. RICHARDS WHO APPROVED CONSULT TO DR. BOWMAN. PATIENT INSTRUCTED ON MEASURES TO PROMOTE HEALING AND PREVENT ADDITIONAL COMPLICATING FACTORS. PATIENT STATES SHE UNDERSTANDS.
[2021-04-26 10:46] LABS: ALBUMIN 3.3 g/dL (3.4-5.0); CALCIUM 8.5 mg/dL (8.5-10.1); CREATININE 1.9 mg/dL (0.6-1.3); POTASSIUM 4.1 mmol/L (3.5-5.1); TOTAL BILIRUBIN 0.1 mg/dL (<0.1-1.0)
--- NOTE | 2021-04-26 11:22 | EKG ---
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
--- NOTE | 2021-04-26 12:18 | 2DMMODE ---
[place] [address] 2 D/M-MODE ECHOCARDIOGRAM Name: MARTINSANATOLIY Room: [address] IN [facility]#: [id number] Admission: 04/26/21 Attend Phys: Gabino Thacker Discharge: Date of : 60 Date of Service: 04/26/21 1218 Report #: [id number] THIS REPORT FOR: cc: Renee Marmolejo,Renee Patel,Tho Bae MD [facility] ~ APPROVED REPORT Study performed: 04/26/2021 11:33:50 EXAM: Comprehensive 2D, Doppler, and color-flow Echocardiogram Patient Location: In-Patient Room #: [facility] Status: routine BSA: 1.59 HR: 98 bpm BP: 135/61 mmHg Rhythm: NSR Other Information Study Quality: Good Indications Syncope 2D Dimensions IVSd: 10.74 (7-11mm) LVOT Diam: 19.57 (18-24mm) LVDd: 38.13 mm PWd: 9.28 (7-11mm) Ascending Ao: 27.35 (22-36mm) LVDs: 21.95 (25-40mm) Aortic Root: 29.87 mm Volumes Left Atrial Volume (Systole) LA ESV Index: 24.40 mL/m2 Aortic Valve AoV Peak Robert.: 1.63 m/s AO Peak Gr.: 10.61 mmHg LVOT Max P.50 mmHg AO Mean Gr.: 6.07 mmHg LVOT Mean P.60 mmHg LVOT Max V: 0.94 m/s AO V2 VTI: 29.71 cm LVOT Mean V: 0.58 m/s WENDY (VTI): 1.63 cm2 LVOT V1 VTI: 16.10 [place] [address] 2 D/M-MODE ECHOCARDIOGRAM Name: ANATOLIY MARTINS Room: [address] IN ..#: [id number] Admission: 04/26/21 Attend Phys: Gabino Thacker Discharge: Date of : 60 Date of Service: 04/26/21 1218 Report #: [id number] Mitral Valve E/A Ratio: 0.87 MV Decel. Time: 174.04 ms MV E Max Robert.: 1.05 m/s MV PHT: 50.47 ms MVA (PHT): 4.36 cm2 TDI E/Lateral E': 9.55 E/Medial E': 10.50 Medial E' Robert.: 0.10 m/s Lateral E' Robert.: 0.11 m/s Pulmonary Valve PV Peak Robert.: 1.01 m/s PV Peak Gr.: 4.12 mmHg Tricuspid Valve RAP Estimate: 5.00 mmHg TR Peak Gr.: 35.96 mmHg RVSP: 41.00 mmHg PA Pressure: 41.00 mmHg Left Ventricle The left ventricle is normal size. There is normal LV segmental wall motion. There is normal left ventricular wall thickness. Left ventricular systolic function is normal. The left ventricular ejection fraction is within the normal range. LVEF is 60-65%. Grade I - abnormal relaxation pattern. Right Ventricle The right ventricle is normal size. The right ventricular systolic function is normal. Atria The left atrium size is normal. The right atrium size is normal. Aortic Valve The aortic valve is normal in structure. No aortic regurgitation is present. There is no aortic valvular stenosis. Mitral Valve The mitral valve is normal in structure. There is no mitral valve regurgitation noted. No evidence of mitral valve stenosis. Tricuspid Valve The tricuspid valve is normal in structure. Trace tricuspid regurgitation. estimated pa pressure 50 [place] [address] 2 D/M-MODE ECHOCARDIOGRAM Name: ANATOILY MARTINS Room: [address] IN [facility]#: [id number] Admission: 04/26/21 Attend Phys: Gabino Thacker Discharge: Date of : 60 Date of Service: 04/26/21 1218 Report #: [id number] Pulmonic Valve The pulmonary valve is normal in structure. Trace pulmonic regurgitation. Great Vessels The aortic root is normal in size. IVC is normal in size and collapses >50% with inspiration. Pericardium There is no pericardial effusion. <Conclusion> LVEF is 60-65%. Trace tricuspid regurgitation. estimated pa pressure 50 mm Hg <ELECTRONICALLY SIGNED> By: Tho Ruiz MD, FACC 04/26/21 1218 1218 Tho Ruiz MD, FACC /INF
--- NOTE | 2021-04-26 12:42 | CON ---
[facility] [address] [place] [address] CONSULTATION Name: ANATOLIY MARTINS Room: [address] IN M.R.#: [id number] Admission: 04/26/21 Attend Phys: Gui Nichols Discharge: Date of : 60 Report #: [id number] THIS REPORT FOR: cc: Renee Marmolejo Linda J. DO Blick, David R. MD [facility] ~ cc: Renee Marmolejo DO DATE OF CONSULTATION: 04/26/2021 CARDIOLOGY CONSULTATION HISTORY OF PRESENT ILLNESS: The patient is a 60-year-old white female who I was asked to see in the hospital after she had a syncopal spell. The patient has an extensive past medical history. She apparently presented in 1999 with chest pain. She was admitted to [facility]. She was found to have coronary artery disease, not amenable to stenting. She eventually had 4-vessel bypass surgery. She has done well since that time. She actually had a stent placed in 2006 at [facility] by Dr. Fajardo's group. She had another stent placed at [place] in 2013. Recently, she has been followed by my partner, Dr. Pires. She actually just saw my nurse practitioner several weeks ago. She does have occasional sharp chest pain. It is not related to exertion or meals. They last very long. She does get short of breath when she exerts herself. She has occasional cough. She notes occasional episodes when her heart rate will increase. She has a long history of falls. She has passed out in the past. Yesterday, she was in the kitchen when she lost her balance and fell. Family members brought her to the Emergency Room. She was found to have left ankle fracture. Cardiology consultation is requested. She denies any seizure activity. She denies recent vomiting, diarrhea or bleeding. PAST MEDICAL HISTORY: She had hysterectomy, appendectomy, cholecystectomy, carpal tunnel surgery, history of lung cancer with previous lobectomy followed by radiation therapy. She has a history of high blood pressure, diabetes, hyperlipidemia, COPD. CURRENT MEDICATIONS: Include Protonix, potassium, aspirin, losartan, ProAir inhaler, Flonase, Crestor, Neurontin, metformin, Lasix as needed, estradiol, sertraline, Advil. ALLERGIES: She has allergy to no drugs. FAMILY HISTORY: Her father had bypass surgery. SOCIAL HISTORY: She is . She is on disability[place] [address] CONSULTATION Name: ANATOLIY MARTINS Room: [address]#: [id number] Admission: 04/26/21 Attend Phys: Gui Nichols Discharge: Date of : 60 Report #: [id number] in [place]. Quit smoking 15 years ago. No alcohol abuse. No illicit drug use. REVIEW OF SYSTEMS: She has had no history of stroke. She has COPD, uses inhaler. No history of liver disease. She has chronic kidney disease. No psychiatric illness. No chronic skin condition. PHYSICAL EXAMINATION: GENERAL: Revealed a middle-aged female, appeared in no acute distress, lying in bed. VITAL SIGNS: She had a blood pressure of 120/60, pulse 90. She is afebrile. HEENT: She was anicteric. Conjunctivae pink. Mucosa is moist. NECK: Veins do not appear distended. No carotid bruits. Neck is supple. CHEST: Clear to auscultation. CARDIAC: Regular rate and rhythm without murmur. ABDOMEN: Soft. EXTREMITIES: Right lower extremity had no edema. Dorsalis pedis pulse on the right was 1+. SKIN: Cool and dry. NEUROLOGIC: Nonfocal. IMAGING DATA: Her ECG on admission last night showed a sinus rhythm with nonspecific T-wave changes. Her workup, she had an echocardiogram done last May here at [place] that showed normal left ventricular function with normal valves. She actually had a CT scan of the head without contrast that showed no acute abnormality, previous infarction of the left cerebellum. Her chest x-ray showed interstitial scarring, no masses. LABORATORY DATA: Sodium 136, creatinine 1.9. Her liver function studies were normal. High sensitivity troponin was only 6. BNP 226. Previous LDL was 144. Her urine drug screen was positive for methamphetamines. Hemoglobin 12.8. IMPRESSION AND RECOMMENDATIONS: 1. Syncopal spell. Reason unclear. We would continue to monitor. 2. History of falls. The patient with ankle fracture. She appears to have no cardiac contraindication to surgery. 3. Coronary artery disease. Previous bypass surgery and stenting. I would continue aspirin 81 mg a day. No recent angina. I would not recommend stress testing at this time. 4. History of lung cancer. 5. Hypertension. The patient is on an ARB. 6. Hyperlipidemia. The patient is on a statin drug. 7. [place] [address] CONSULTATION Name: ANATOLIY MARTINS Room: [address] IN .Ricardo.#: [id number] Admission: 04/26/21 Attend Phys: Gui Nichols Discharge: Date of : 60 Report #: [id number] 8. Chronic obstructive pulmonary disease. The patient uses an inhaler. 9. Chronic kidney disease. <ELECTRONICALLY SIGNED> By: Tho Ruiz MD, FACC 04/26/21 1242 0956 [id number] Ruiz MD, FACMartha /nt
[2021-04-26] MEDS ORDERED: NEURONTIN600 MG PO (12:47)
[2021-04-26] MEDS ORDERED: MAG-OXIDE400 MG PO (12:48)
[2021-04-26] MEDS ORDERED: FLEXERIL PO (12:49)
[2021-04-26] MEDS ORDERED: FUROSEMIDE 20 M20 MG PO (12:52)
[2021-04-26] MEDS ORDERED: ACETAMINOPHEN500 M1 PO (12:53)
[2021-04-26] MEDS ORDERED: ADVIL200 M1 PO (12:54)
[2021-04-26] MEDS ORDERED: FOSAMAX 70 MG T70 MG PO (12:59)
--- NOTE | 2021-04-26 13:53 | NUR ---
Pt has multiple consults, including Neurology, Cardiology, Orthopedic Surgery, and Wound Care. Dr. York with wound care sees her in clinic for R foot wound, and states he is out of town but will see on Thursday if pt is still in the hospital. Dr. Baeza, neurology, states she will see pt tomorrow (04/27). VSS. On IVF @ 100 ml/hr. So far pt has voided once, 115 ml yellow urine, since arrival to unit at shift change this morning. Pt has had multiple diagnostic tests today, including echo, US carotids, & VQ scan. Awaiting results. Reports adequate pain control of L ankle (fractured) with [place]. Will continue to monitor.
[2021-04-27] VITALS (7 sets, daily range): BP systolic 107–136; BP diastolic 57–70
--- NOTE | 2021-04-27 03:13 | NUR ---
PT SLEEPING, EASILY AROUSED. UP TO BSC WITH ASSIST OF ONE. HYDROCODONE GIVEN FOR PAIN IN L ANKLE. 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
[2021-04-27 04:20] LABS: ABSOLUTE EOSINOPHILS 0.2 thou/uL (0.0-0.7); ABSOLUTE LYMPHOCYTES 1.1 thou/uL (0.8-5.3); ABSOLUTE MONOCYTES 0.5 thou/uL (0.0-1.2); ABSOLUTE NEUTROPHILS 4.1 thou/uL (1.6-8.1); BASOPHILS 0.7 %; EOSINOPHILS 3.2 %; HEMATOCRIT 32.8 % (37.0-47.0); LYMPHOCYTES 18.5 %; MCH 28.2 pg (26.0-34.0); MCHC 33.7 g/dL (28.0-37.0); MCV 83.6 fL (80.0-100.0); MPV 8.1 fl. (7.2-11.1); NUCLEATED RBCS 0 /100WBC; PLATELET COUNT* 189 thou/uL (150-400); POLYS 68.6 %; RBC 3.92 mil/uL (4.20-5.00); RDW-CV 14.8 % (10.5-14.5)
[2021-04-27 04:30] LABS: CALCIUM 8.9 mg/dL (8.5-10.1); CREATININE 1.2 mg/dL (0.6-1.3); POTASSIUM 4.4 mmol/L (3.5-5.1)
[2021-04-27 05:09] LABS: CHOLESTEROL 177 mg/dL (<200); HDL CHOLESTEROL 44 mg/dL (>40); LDL CHOLESTEROL 93 mg/dL (<100); TRIGLYCERIDE 202 mg/dL (<150); VLDL 40 mg/dL (<40)
[2021-04-27 05:11] LABS: SERUM ASSESSMENT CLEAR
[2021-04-27 18:10] LABS: AMP/METHAMP Negative (Negative); BARBITURATES Negative (Negative); BENZODIAZEPINES Negative (Negative); COCAINE Negative (Negative); METHADONE Negative (Negative); OPIATES POSITIVE (Negative); PCP Negative (Negative); THC Negative (Negative)
--- NOTE | 2021-04-27 18:55 | NUR ---
1500- report need for belogings search to security due to fegity movements throughout the shift and after curtain opened up patient quickly turned away from the opened curtain. Diego See here to [place] personal belongings search from patients purse and hospital drawers/cloest. No drugs of any kind were found. reported to physcian and orders for drug screen recieved.
--- NOTE | 2021-04-28 01:50 | NUR ---
PT ALERT ORIENTED. UP WITH ASSIST OF ONE. 25% WTB ON L FOOT. HYDROCODONE GIVEN FOR PAIN. 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 ON RA. R ANKLE WITH SPLINT. DRSG ON L FOOT. FALL PRECAUTIONS IN PLACE.
--- NOTE | 2021-04-28 04:32 | NUR ---
PT QUESTIONING RN ABOUT INSULIN LAST NIGHT. PT ASKED RN WHY DON'T I REMEMBER. PT FIGITY AND ANGRY.
[2021-04-28 04:46] VITALS: BP 153/75
[2021-04-28 08:30] VITALS: BP 133/62
[2021-04-28 10:35] VITALS: BP 153/75
[2021-04-28] MEDS ORDERED: COZAAR 25 MG TA25 M1 PO (11:49)
--- NOTE | 2021-04-28 16:19 | CON ---
[address] [address] CONSULTATION Name: ANATOLIY MARTINS Room: [address] IN .R.#: [id number] Admission: 04/26/21 Attend Phys: Gui Nichols Discharge: 04/28/21 Date of : 60 Report #: [id number] THIS REPORT FOR: cc: Renee Marmolejo Linda J. DO Greiner, Robert F. II DO ~ DATE OF CONSULTATION: 04/26/2021 ORTHOPEDIC CONSULTATION CHIEF COMPLAINT: Left ankle fracture. HISTORY OF PRESENT ILLNESS: The patient is a 60-year-old who had a syncopal episode, states she fell and hurt her left lower extremity, it was a sharp and stabbing lasted for several hours. She does currently have difficulty walking, has been splinted by the ER and denies any swelling or loss of sensation to the extremity, states the splint has helped. Has a significant history for diabetes as well as mini strokes in the past. PAST MEDICAL HISTORY: Type 2 diabetes, UTI, syncope, nausea, fibula fracture. ALLERGIES: The patient denies. MEDICATIONS: Listed in H and P. PAST SURGICAL HISTORY: Cardiac stent, hysterectomy, appendectomy, right upper lobectomy due to lung cancer, hypertension, high cholesterol. FAMILY HISTORY: Noncontributory. SOCIAL HISTORY: The patient denies any tobacco currently, did formerly smoke cigarettes. Denies any recreational drugs and denies any alcohol. REVIEW OF SYSTEMS: A 12-system review of systems negative except pertinent positives in the HPI. PHYSICAL EXAMINATION: GENERAL: The patient is alert and in no distress. HEENT: Head is atraumatic, normocephalic. Eyes: Pupils equal, round, and reactive to light. Nose without ulcerations. Mouth: Moist mucous membranes. NECK: Supple. No JVD. CARDIOVASCULAR: Regular rate and rhythm. Cap refill is normal. LUNGS: Clear to auscultation bilaterally. No wheezes or crackles. ABDOMEN: Soft, bowel sounds present, no masses. EXTREMITIES: No clubbing, cyanosis or edema. [place] [address] CONSULTATION Name: ANATOLIY MARTINS Sasha Room: [address]#: [id number] Admission: 04/26/21 Attend Phys: Gui Nichols Discharge: 04/28/21 Date of : 60 Report #: [id number] SKIN: Normal color. PSYCHIATRIC: Appropriate mood and affect. MUSCULOSKELETAL: The patient is in the left lower leg splint, does move toes well, has intact sensation throughout the lower extremities, although this does have some mild numbness due to possible diabetic neuropathy. IMAGING DATA: X-ray review of the head CT shows no intracranial process, stable small hypodensity in the left cerebellum consistent with old infarct. Evaluation of the ankle does have some discrepancies on the report, however, reviewing the films does show a left ankle distal fibula fracture without displacement. LABORATORY DATA: Potassium 4.1, sodium 136, chloride 101, BUN 29, creatinine 1.9. ASSESSMENT: 1. Syncopal episode. 2. Hypotension upon evaluation. 3. Coronary artery disease. 4. Diabetes type 2. 5. Left ankle fracture. PLAN: At this time, the patient will be continued medical workup for other reasons of syncopal episode. At this time, the left ankle is in a splint and will remain this way with close treatment performed on the distal fibula as it is nondisplaced. We will continue this for 2 weeks and like see the patient back in clinic for evaluation and x-rays. At this time, she is orthopedically stable to continue transferring at 25% weightbearing to the lower extremity. Recommend physical therapy for walker training and crutches if needed and the patient is to follow up on an outpatient basis. I appreciate this consultation. <ELECTRONICALLY SIGNED> By: Sahil Sidhu II, DO 04/28/21 1619 52 [id number] Sidhu II, DO /nt
== END 2021-04-28 11:20 | disposition home or self-care (01) | DRG 562 ==
LOC: M.ERS 02:28 → M.TBA-ER 05:10 → M.2W 07:23
PROVIDERS: Emergency Medicine; Internal Medicine; ADMIT Internal Medicine; ATTEND Internal Medicine
PROC: 2W3MX1Z Immobilization of Left Lower Extremity using Splint (ICD-10-PCS; principal; 2021-04-26)
DX: S82.892A Other fracture of left lower leg, initial encounter for closed fracture (principal); N17.0 Acute kidney failure with tubular necrosis; N39.0 Urinary tract infection, site not specified; I95.2 Hypotension due to drugs; Z20.822 Contact with and (suspected) exposure to COVID-19; I25.10 Atherosclerotic heart disease of native coronary artery without angina pectoris; E78.00 Pure hypercholesterolemia, unspecified; F32.9 Major depressive disorder, single episode, unspecified; F41.9 Anxiety disorder, unspecified; E86.0 Dehydration; J44.9 Chronic obstructive pulmonary disease, unspecified; N18.9 Chronic kidney disease, unspecified; I65.22 Occlusion and stenosis of left carotid artery; E11.65 Type 2 diabetes mellitus with hyperglycemia; E11.22 Type 2 diabetes mellitus with diabetic chronic kidney disease; I12.9 Hypertensive chronic kidney disease with stage 1 through stage 4 chronic kidney disease, or unspecified chronic kidney disease; E11.42 Type 2 diabetes mellitus with diabetic polyneuropathy; E11.621 Type 2 diabetes mellitus with foot ulcer; Z23 Encounter for immunization; Z95.5 Presence of coronary angioplasty implant and graft; Z90.710 Acquired absence of both cervix and uterus; Z90.49 Acquired absence of other specified parts of digestive tract; Z85.118 Personal history of other malignant neoplasm of bronchus and lung; Z87.891 Personal history of nicotine dependence; Z98.42 Cataract extraction status, left eye; Z98.41 Cataract extraction status, right eye; Z82.49 Family history of ischemic heart disease and other diseases of the circulatory system; Z86.73 Personal history of transient ischemic attack (TIA), and cerebral infarction without residual deficits; W18.39XA Other fall on same level, initial encounter; Y93.89 Activity, other specified; Y92.89 Other specified places as the place of occurrence of the external cause; Y99.8 Other external cause status

== ENCOUNTER → 2021-05-09 | Outpatient (CLI) | payer MEDICARE, OTHER ==
[~2021-05-09] MED LIST changes: +ACETAMINOPHEN500 M1 PO; +ADVIL200 M1 PO; +COZAAR 25 MG TA25 M1 PO; +FLEXERIL PO; +FOSAMAX 70 MG T70 MG PO; +FUROSEMIDE 20 M20 MG PO; +MAG-OXIDE400 MG PO; +METFORMIN HCL500 MG PO; +NEURONTIN600 MG PO
== END ==
LOC: M.RAD 12:06
PROVIDERS: ATTEND Orthopaedic Surgery
DX: S82.892A Other fracture of left lower leg, initial encounter for closed fracture (principal); X58.XXXA Exposure to other specified factors, initial encounter; Y93.89 Activity, other specified; Y92.89 Other specified places as the place of occurrence of the external cause; Y99.8 Other external cause status

== ENCOUNTER 2021-05-22 17:10 | Observation (INO) | payer MEDICARE, OTHER ==
[~2021-05-22] VITALS: Ht 152.4 cm; Wt 61.2 kg
[2021-05-22 17:15] VITALS: BP 178/71
[2021-05-22] MEDS ORDERED: LANTUS SUBQ (17:29)
[2021-05-22] MEDS ORDERED: HUMULINR100 SUBQ (17:29)
[2021-05-22] MEDS ORDERED: DULERA 100 MCG/13 GM INH (17:32)
[2021-05-22] MEDS ORDERED: ESTRACE0.5 MG PO (17:34)
[2021-05-22] MEDS ORDERED: SERTRALINE HCL100 MG PO (17:34)
[2021-05-22] MEDS ORDERED: TRAZODONE HCL50 MG PO (17:35)
[2021-05-22 17:52] LABS: ABSOLUTE BASOPHILS 0.1 thou/uL (0.0-0.2); ABSOLUTE EOSINOPHILS 0.3 thou/uL (0.0-0.7); ABSOLUTE LYMPHOCYTES 1.1 thou/uL (0.8-5.3); ABSOLUTE MONOCYTES 0.4 thou/uL (0.0-1.2); ABSOLUTE NEUTROPHILS 3.3 thou/uL (1.6-8.1); BASOPHILS 1.3 %; EOSINOPHILS 5.4 %; HEMATOCRIT 30.9 % (37.0-47.0); HEMOGLOBIN 10.5 gm/dL (12.0-15.0); LYMPHOCYTES 20.9 %; MCH 28.9 pg (26.0-34.0); MCHC 33.9 g/dL (28.0-37.0); MCV 85.3 fL (80.0-100.0); MPV 8.1 fl. (7.2-11.1); NUCLEATED RBCS 0 /100WBC; PLATELET COUNT* 226 thou/uL (150-400); POLYS 64.4 %; RBC 3.62 mil/uL (4.20-5.00); WBC 5.1 thou/uL (4.0-11.0)
[2021-05-22 18:04] LABS: CALCIUM 8.7 mg/dL (8.5-10.1); CREATININE 1.7 mg/dL (0.6-1.3); POTASSIUM 4.2 mmol/L (3.5-5.1)
[2021-05-22 18:19] LABS: ALBUMIN 3.2 g/dL (3.4-5.0); CK-MB MASS 1.7 ng/mL (<0.5-3.6); MAGNESIUM 2.2 mg/dL (1.8-2.4); TOTAL BILIRUBIN 0.2 mg/dL (<0.1-1.0)
[2021-05-23] VITALS: BP 114/56
[2021-05-23 04:00] VITALS: BP 121/52
[2021-05-23 09:41] VITALS: BP 113/44
--- NOTE | 2021-05-23 13:48 | EKG ---
[place] [address] ELECTROCARDIOGRAM REPORT Name: ANATOLIY MARTINS Room: [address] M.R.#: [id number] Admission: 05/22/21 Attend Phys: Virgil Evangelista Discharge: Date of : 60 Date of Service: 05/22/21 1716 Report #: [id number] THIS REPORT FOR: //name// [facility] ED Test Date: 2021-05-22 Test Time: 17:16:35 Pat Name: ANATOLIY MARTINS Department: Room: [facility] Gender: F Baggage Security Checker: TP : 1960 Requested By: Ho Wilks Order Number: [id number] MD: Tho Ruiz Measurements Intervals [place] Rate: 106 P: 48 MT: 187 QRS: 20 QRSD: 91 T: 97 QT: 336 QTc: 447 Interpretive Statements Sinus tachycardia Probable left atrial enlargement Nonspecific T abnormalities, lateral leads Compared to ECG 04/26/2021 02:38:46 Sinus rhythm no longer present T-wave abnormality still present Electronically Signed On 05-23-2021 13:48:33 CDT by Tho Ruiz [email or web address] <ELECTRONICALLY SIGNED> By: Tho Ruiz MD, FACC 05/23/21 1348 1716 1716 Tho Ruiz MD, FAC /EPI
--- NOTE | 2021-05-23 13:50 | EKG ---
[place] [address] ELECTROCARDIOGRAM REPORT Name: ANATOLIY MARTINS Room: [address] M.R.#: [id number] Admission: 05/22/21 Attend Phys: Virgil Evangelista Discharge: Date of : 60 Date of Service: 05/22/21 1753 Report #: [id number] THIS REPORT FOR: //name// [facility] ED Test Date: 2021-05-22 Test Time: 17:53:09 Pat Name: ANATOLIY MARTINS Department: Room: [place] [address] Gender: F Fruit Thinner: NEFTALI : 1960 Requested By: Ho Wilks Order Number: [id number] MD: Tho Ruiz Measurements Intervals [place] Rate: 97 P: 45 OK: 149 QRS: 12 QRSD: 92 T: 96 QT: 360 QTc: 458 Interpretive Statements Sinus rhythm nonspecific st segment changes Left atrial enlargement Compared to ECG 05/22/2021 17:16:35 Sinus tachycardia no longer present Electronically Signed On 05-23-2021 13:49:53 CDT by Tho Ruiz [email or web address] <ELECTRONICALLY SIGNED> By: Tho Ruiz MD, FAC 05/23/21 1349 1753 1753 Tho Ruiz MD, [facility] /EPI
[2021-05-23 14:00] VITALS: BP 106/87
--- NOTE | 2021-05-23 15:35 | CARDNUC ---
[place] [address] CARDIAC NUCLEAR IMAGING REPORT Name: ANATOLIY MARTINS Room: [address] M.R.#: [id number] Admission: 05/22/21 Attend Phys: Virgil Evangelista Discharge: Date of : 60 Date of Service: 05/23/21 1535 Report #: [id number] THIS REPORT FOR: cc: Renee Marmolejo Linda J. DO Liston, Michael J. MD [facility] ~ APPROVED REPORT Imaging Protocol: Rest Tc-99m/Stress Tc-99m 1 day Study performed: 05/23/2021 08:40:00 Indication: Chest pain, Syncope, Hypotension Patient Location: In-Patient Room #: E.D. Stress Tech: MAGALY CONNOR Stress Nurse: Rosa Benedict RN NM Tech:BRENT Pina Ht: 5 ft 0 in Wt: 140 lbs BSA: 1.60 m2 BMI: 27.33 Medical History Medical History: Angina, CAD s/p CABG, CAD s/p stent, Carotid artery disease, CKD, Diabetic Insulin, Former Smoker, HTN, Hyperlipidemia, SOB, recent falls, FX ankle with boot, edema, palpitations, HX lung cancer/ Right lobectomy, worsening memory. Medications: ASA 81 MG, LASIX PRN, LOSARTAN, NTG, ROSUVASTATIN, KCL, METFORMIN. Allergies: No known drug allergies Cardiac Risk Factors: Age, Diabetes (insulin), FHX of CAD, HTN, Hyperlipidemia, SOB, Past Smoker, Left Carotid Stenosis. Previous Cardiac Procedures: CABG, PCI. Pretest Chest Pain Characteristics: No chest pain Exercise History: Indeterminate Physical Disabilities: Ankle fracture with boot, recent syncope with falls. Meds Held (24 hrs): NTG. Resting Data Rest SPECT myocardial perfusion imaging was performed in supine position 30 minutes following the intravenous injection of 12.0 mCi of Tc-99m Sestamibi. Time of rest injection: 1140 Date: 05/23/2021 The images were gated to evaluate regional wall [place] [address] CARDIAC NUCLEAR IMAGING REPORT Name: ELIEZERANATOLIY [address] [id number] Admission: 05/22/21 Attend Phys: Virgil Evangelista Discharge: Date of : 60 Date of Service: 05/23/21 1535 Report #: [id number] left ventricular ejection fraction. Administration Route: IV Administration Site: Left AC Pharmacologic Stress Pharmacologic stress test was performed by injecting Regadenoson 0.4 mg IV push over 10-15 seconds immediately followed by the intravenous injection of 34.9 mCi of Tc-99m Sestamibi. Time of stress injection: 1315 Date: 05/23/2021 Administration Route: IV Administration Site: Left AC Gated Stress SPECT was performed 40 minutes after stress injection. The images were gated to evaluate regional wall motion and calculate left ventricular ejection fraction. Prone imaging was performed. Stress Test Details Stress Test: Pharmacologic stress testing performed using 0.4 mg of regadenoson per 5 mL given IV over 10 seconds. Reason for pharmacologic stress test: Ankle fracture with boot, recent syncope with falls.. HR Max Heart Rate (APMHR): 159 bpm Resting HR: 89 bpm Target HR (85% APMHR): 135 bpm Max HR Achieved: 101 bpm % of APMHR: 63 Recovery HR: 96 bpm BP Resting BP: 124/69 mmHg Max BP: 104/66 mmHg Recovery BP: 126/44 mmHg ECG Resting ECG: Sinus Rhythm Stress ECG: Sinus Tachycardia ST Change: None Arrhythmia: None Recovery ECG: Sinus Rhythm Recovery ST Change: None Recovery Arrhythmia: None Clinical Reason for Termination: Completed protocol Stress Symptoms: Dizziness, dull pain center of chest , head fullness/[place] [address] CARDIAC NUCLEAR IMAGING REPORT Name: ANATOLIY MARTINS Room: [address]#: [id number] Admission: 05/22/21 Attend Phys: Virgil Evangelista Discharge: Date of : 60 Date of Service: 05/23/21 1535 Report #: [id number] Exercise duration: 00 min 00 sec Exercise capacity: 1.00 METs Patient had mild central chest discomfort during Lexiscan infusion. Nurse Paloma Troncoso patient presented for a sitting Lexiscan. Test well tolerated. Patient was stable and stated she felt good when escorted to Nuclear Medicine for imaging. Stress ECG Conclusion The baseline twelve-lead EKG shows sinus rhythm without significant ST segment abnormality. EKGs obtained during and post Lexiscan infusion show sinus rhythm and sinus tachycardia with no significant ST segment changes when compared to baseline. Study Quality Study: Good Artifact: No artifact Study Data At rest, the left ventricular ejection fraction was 72%.. Post stress, the left ventricular ejection was 78%.. TID = 0.96. Perfusion Perfusion images obtained at rest and post Lexiscan stress showed uniform uptake of the radioisotope throughout the myocardium. There were no defects to suggest infarct or ischemia. Wall Motion Normal left ventricular wall motion. Nuclear Conclusion ECG Findings: negative for ischemia Clinical Findings: equivocal Nuclear Findings: negative for ischemia Exercise Capacity: not assessed Left Ventricular Function: normal Risk Study: low Perfusion images show no defect to suggest infarct or ischemia. Left ventricular systolic function appears normal on gated studies. This is a low risk study. <Conclusion> The baseline twelve-lead EKG shows sinus [place] [address] CARDIAC NUCLEAR IMAGING REPORT Name: ANATOLIY MARTINS Room: [address] [place]#: [id number] Admission: 05/22/21 Attend Phys: Virgil Evangelista Discharge: Date of : 60 Date of Service: 05/23/21 1535 Report #: [id number] segment abnormality. EKGs obtained during and post Lexiscan infusion show sinus rhythm and sinus tachycardia with no significant ST segment changes when compared to baseline. <ELECTRONICALLY SIGNED> By: Sj Pires MD, FACC 05/23/21 1535 34 1535 Sj Pires MD, FACC /INF
[2021-05-23 15:48] VITALS: BP 106/87
[2021-05-23 16:09] VITALS: BP 117/37
== END 2021-05-23 16:13 | disposition home or self-care (01) ==
LOC: M.ERS 17:10 → M.TBA-ER 18:25
PROVIDERS: Family Medicine; ADMIT Internal Medicine; ATTEND Internal Medicine
DX: R07.89 Other chest pain (principal); Z20.822 Contact with and (suspected) exposure to COVID-19; N17.9 Acute kidney failure, unspecified; E11.65 Type 2 diabetes mellitus with hyperglycemia; I25.10 Atherosclerotic heart disease of native coronary artery without angina pectoris; I10 Essential (primary) hypertension; E78.5 Hyperlipidemia, unspecified; D50.9 Iron deficiency anemia, unspecified; I65.22 Occlusion and stenosis of left carotid artery; Z85.118 Personal history of other malignant neoplasm of bronchus and lung

== ENCOUNTER → 2021-05-24 | Outpatient (CLI) | payer MEDICARE, OTHER ==
[~2021-05-24] MED LIST changes: +DULERA 100 MCG/13 GM INH; +ESTRACE0.5 MG PO; +HUMULINR100 SUBQ; +SERTRALINE HCL100 MG PO; +TRAZODONE HCL50 MG PO
== END ==
LOC: M.MRI 05-02 08:40
PROVIDERS: ATTEND Psychiatry & Neurology Neurology
DX: S82.892A Other fracture of left lower leg, initial encounter for closed fracture (principal); I65.23 Occlusion and stenosis of bilateral carotid arteries; X58.XXXA Exposure to other specified factors, initial encounter; Y92.89 Other specified places as the place of occurrence of the external cause; Y93.89 Activity, other specified; Y99.8 Other external cause status

== ENCOUNTER → 2021-06-14 | Outpatient (CLI) | payer MEDICARE, OTHER | LOC: M.RAD 10:17 | PROVIDERS: ATTEND Orthopaedic Surgery | DX: S82.432D Displaced oblique fracture of shaft of left fibula, subsequent encounter for closed fracture with routine healing (principal); S82.65XD Nondisplaced fracture of lateral malleolus of left fibula, subsequent encounter for closed fracture with routine healing; X58.XXXD Exposure to other specified factors, subsequent encounter ==

== ENCOUNTER → 2021-07-30 | Outpatient (CLI) | payer MEDICARE, OTHER | LOC: M.WC 08:45 | PROVIDERS: ATTEND Surgery | DX: E11.621 Type 2 diabetes mellitus with foot ulcer (principal); L97.512 Non-pressure chronic ulcer of other part of right foot with fat layer exposed; L97.522 Non-pressure chronic ulcer of other part of left foot with fat layer exposed; L84 Corns and callosities; I10 Essential (primary) hypertension; E78.5 Hyperlipidemia, unspecified; I25.119 Atherosclerotic heart disease of native coronary artery with unspecified angina pectoris; K21.9 Gastro-esophageal reflux disease without esophagitis; F32.9 Major depressive disorder, single episode, unspecified; F41.9 Anxiety disorder, unspecified; Z85.118 Personal history of other malignant neoplasm of bronchus and lung; Z87.891 Personal history of nicotine dependence; Z95.5 Presence of coronary angioplasty implant and graft; Z90.710 Acquired absence of both cervix and uterus; Z90.49 Acquired absence of other specified parts of digestive tract; Z98.41 Cataract extraction status, right eye; Z98.42 Cataract extraction status, left eye; Z79.82 Long term (current) use of aspirin; Z79.4 Long term (current) use of insulin ==

== ENCOUNTER → 2021-08-06 | Outpatient (CLI) | payer MEDICARE, OTHER | LOC: M.WC 08:36 | PROVIDERS: ATTEND Surgery | DX: E11.621 Type 2 diabetes mellitus with foot ulcer (principal); L97.512 Non-pressure chronic ulcer of other part of right foot with fat layer exposed; L97.522 Non-pressure chronic ulcer of other part of left foot with fat layer exposed; L84 Corns and callosities; E78.5 Hyperlipidemia, unspecified; I10 Essential (primary) hypertension; I25.119 Atherosclerotic heart disease of native coronary artery with unspecified angina pectoris; K21.9 Gastro-esophageal reflux disease without esophagitis; F32.9 Major depressive disorder, single episode, unspecified; F41.9 Anxiety disorder, unspecified; Z85.118 Personal history of other malignant neoplasm of bronchus and lung; Z87.891 Personal history of nicotine dependence; Z95.5 Presence of coronary angioplasty implant and graft; Z90.710 Acquired absence of both cervix and uterus; Z90.49 Acquired absence of other specified parts of digestive tract; Z98.41 Cataract extraction status, right eye; Z98.42 Cataract extraction status, left eye; Z79.82 Long term (current) use of aspirin; Z79.4 Long term (current) use of insulin ==

== ENCOUNTER → 2021-08-12 | Outpatient (CLI) | payer MEDICARE, OTHER | LOC: M.WC 12:49 | PROVIDERS: ATTEND Podiatrist Foot & Ankle Surgery | DX: E11.621 Type 2 diabetes mellitus with foot ulcer (principal); L97.512 Non-pressure chronic ulcer of other part of right foot with fat layer exposed; L97.522 Non-pressure chronic ulcer of other part of left foot with fat layer exposed; L84 Corns and callosities; E78.5 Hyperlipidemia, unspecified; I10 Essential (primary) hypertension; I25.119 Atherosclerotic heart disease of native coronary artery with unspecified angina pectoris; K21.9 Gastro-esophageal reflux disease without esophagitis; M20.21 Hallux rigidus, right foot; M20.22 Hallux rigidus, left foot; F32.9 Major depressive disorder, single episode, unspecified; F41.9 Anxiety disorder, unspecified; Z85.118 Personal history of other malignant neoplasm of bronchus and lung; Z87.891 Personal history of nicotine dependence; Z95.5 Presence of coronary angioplasty implant and graft; Z90.710 Acquired absence of both cervix and uterus; Z90.49 Acquired absence of other specified parts of digestive tract; Z98.41 Cataract extraction status, right eye; Z98.42 Cataract extraction status, left eye; Z79.82 Long term (current) use of aspirin; Z79.4 Long term (current) use of insulin ==

== ENCOUNTER → 2021-09-09 | Outpatient (CLI) | payer MEDICARE, OTHER | LOC: M.WC 13:23 → M.RAD 13:23 → M.WC 13:30 | PROVIDERS: ATTEND Podiatrist Foot & Ankle Surgery | DX: E11.621 Type 2 diabetes mellitus with foot ulcer (principal); L97.522 Non-pressure chronic ulcer of other part of left foot with fat layer exposed; L97.512 Non-pressure chronic ulcer of other part of right foot with fat layer exposed; M20.21 Hallux rigidus, right foot; M20.22 Hallux rigidus, left foot; L84 Corns and callosities; K21.9 Gastro-esophageal reflux disease without esophagitis; E78.5 Hyperlipidemia, unspecified; I10 Essential (primary) hypertension; I25.10 Atherosclerotic heart disease of native coronary artery without angina pectoris; F41.9 Anxiety disorder, unspecified; F32.9 Major depressive disorder, single episode, unspecified; Z86.16 Personal history of COVID-19; Z87.891 Personal history of nicotine dependence; Z79.4 Long term (current) use of insulin; Z79.82 Long term (current) use of aspirin; Z79.899 Other long term (current) drug therapy; Z79.84 Long term (current) use of oral hypoglycemic drugs; Z98.890 Other specified postprocedural states; Z98.41 Cataract extraction status, right eye; Z98.42 Cataract extraction status, left eye; Z90.710 Acquired absence of both cervix and uterus ==

== ENCOUNTER → 2021-09-16 | Outpatient (CLI) | payer MEDICARE, OTHER | LOC: M.WC 13:20 | PROVIDERS: ATTEND Podiatrist Foot & Ankle Surgery | DX: E11.621 Type 2 diabetes mellitus with foot ulcer (principal); L97.522 Non-pressure chronic ulcer of other part of left foot with fat layer exposed; L97.512 Non-pressure chronic ulcer of other part of right foot with fat layer exposed; M20.21 Hallux rigidus, right foot; M20.22 Hallux rigidus, left foot; L84 Corns and callosities; E78.5 Hyperlipidemia, unspecified; I10 Essential (primary) hypertension; K21.9 Gastro-esophageal reflux disease without esophagitis; I25.10 Atherosclerotic heart disease of native coronary artery without angina pectoris; F41.9 Anxiety disorder, unspecified; F32.9 Major depressive disorder, single episode, unspecified; Z86.16 Personal history of COVID-19; Z87.891 Personal history of nicotine dependence; Z79.4 Long term (current) use of insulin; Z79.82 Long term (current) use of aspirin; Z79.84 Long term (current) use of oral hypoglycemic drugs; Z98.41 Cataract extraction status, right eye; Z98.42 Cataract extraction status, left eye; Z90.710 Acquired absence of both cervix and uterus ==

== ENCOUNTER → 2021-09-23 | Outpatient (CLI) | payer MEDICARE, OTHER | LOC: M.WC 11:00 | PROVIDERS: ATTEND Podiatrist Foot & Ankle Surgery | DX: E11.621 Type 2 diabetes mellitus with foot ulcer (principal); L97.522 Non-pressure chronic ulcer of other part of left foot with fat layer exposed; L97.512 Non-pressure chronic ulcer of other part of right foot with fat layer exposed; M20.21 Hallux rigidus, right foot; M20.22 Hallux rigidus, left foot; L84 Corns and callosities; E78.5 Hyperlipidemia, unspecified; I10 Essential (primary) hypertension; K21.9 Gastro-esophageal reflux disease without esophagitis; I25.10 Atherosclerotic heart disease of native coronary artery without angina pectoris; F41.9 Anxiety disorder, unspecified; F32.9 Major depressive disorder, single episode, unspecified; Z86.16 Personal history of COVID-19; Z87.891 Personal history of nicotine dependence; Z79.4 Long term (current) use of insulin; Z79.82 Long term (current) use of aspirin; Z79.84 Long term (current) use of oral hypoglycemic drugs; Z98.41 Cataract extraction status, right eye; Z98.42 Cataract extraction status, left eye; Z90.710 Acquired absence of both cervix and uterus ==